=== PATIENT | male | born 1990 | race Two or more races ===

== ENCOUNTER 2017-01-10 23:59 | Inpatient (IN) | payer SELFPAY ==
[~2017-01-10] VITALS: Ht 167.6 cm; Wt 59.0 kg
[2017-01-11] VITALS (8 sets, daily range): BP systolic 107–124; BP diastolic 58–63
[2017-01-11] MEDS ORDERED: TdaP Vaccine 0.5ml Syr IM ONE (00:15)
--- NOTE | 2017-01-11 00:42 | Emergency Room Report ---
History of Present Illness General Chief Complaint: Pain Source: Patient, EMS Present Illness HPI Patient was brought in by EMS. People were closing up an AA meeting mays. The patient was still there and altered. Apparently family had dropped him off there. He claims that they had him chained by his arms and his ankles for several days to keep him from getting alcohol. He has pain in his wrists and his ankles and also headache. Alleges no vomiting. + diarrhea. No dysuria. Sparse answers about other questions. He states he was in a hospital before the 7 days - on [address] (we called [facility] and [facility] both stated he was not there.) Allergies: Coded Allergies: No Known Allergies (Unverified , 01/10/17) Patient History Past Medical History: see triage record Social History: Reports: alcohol use Social History Narrative alleges family chained him, also states with child Reviewed Nursing Documentation: PMH: Agreed, PSxH: Agreed Nursing Documentation-PMH Past Medical History: No Stated History Review of Systems All Other Systems: limited - possible confabulation Physical Exam Vital Signs Date Time Temp Pulse Resp B/P Pulse Ox O2 Delivery O2 Flow Rate FiO2 01/10/17 23:58 98.1 90 16 134/69 98 Room Air Sp02 EP Interpretation: reviewed, normal General Appearance: no apparent distress, other - dishevelled Head: normocephalic Eyes: bilateral eye PERRL, bilateral eye Scleral Injection ENT: moist mucus membranes Neck: full range of motion Respiratory: lungs clear, normal breath sounds Cardiovascular #1: regular rate, rhythm Cardiovascular #2: 2+ radial (R) Gastrointestinal: normal bowel sounds, non tender, soft Rectal: black stool, heme positive stool Genitourinary: other - ulcer on scrota Musculoskeletal: normal range of motion, pelvis stable, swelling - R hand, wrists and ankles, other - tender wrists and ankles Neurologic: motor strength/tone normal, DTRs symmetric, sensory intact, other - possible asterixis, oriented - X2 - possible confabulation Psychiatric: depressed affect, other - lethargic Skin: pallor, rash, abrasions Medical Decision Making Diagnostic Impression: Primary Impression: GI bleed Qualified Codes: K92.1 - Melena Additional Impressions: Alcohol intoxication Qualified Codes: F10.929 - Alcohol use, unspecified with intoxication, unspecified Alcoholic liver disease Thrombocytopenia Scrotal ulcer ER Course Patient presents with extremity pain with altered mentation. He has melanotic stools. Differential includes gastritis, esophageal varices, peptic ulcer disease amongst others. We need to exclude a coagulopathy. In addition is complaining about pain in his extremities. There is no deformity however x- rays need to be obtained. In addition to that he is altered and claims has not been drinking alcohol for 7 days. We need to CT his head. He'll be getting IV hydration, thiamine. In addition he'll receive Protonix. Labs are significant for critical anemia. Due to the GI bleed the patient is being admitted to [facility]. In addition to that he has elevated liver function tests. As alcohol is 433. Mild coagulopathy. CT head negative. Given vitamin K. Improved with treatment. Holding off on transfusion. Concern for possible DTs when alcohol decreases. Admit [facility], Dr. Huff. Laboratory Tests Test 01/11/17 00:25 01/11/17 00:50 White Blood Count 4.3 K/UL (4.8-10.8) L Red Blood Count 3.17 M/UL (4.70-6.10) L Hemoglobin 7.9 G/DL (14.2-18.0) L Hematocrit 25.1 % (42.0-52.0) L Mean Corpuscular Volume 79 FL (80-99) L Mean Corpuscular Hemoglobin 25.0 PG (27.0-31.0) L Mean Corpuscular Hemoglobin Concent 31.6 G/DL (32.0-36.0) L Red Cell Distribution Width 18.3 % (11.6-14.8) H Platelet Count 20 K/UL (150-450) L Mean Platelet Volume 8.3 FL (6.5-10.1) Neutrophils (%) (Auto) % (45.0-75.0) Lymphocytes (%) (Auto) % (20.0-45.0) Monocytes (%) (Auto) % (1.0-10.0) Eosinophils (%) (Auto) % (0.0-3.0) Basophils (%) (Auto) % (0.0-2.0) Prothrombin Time 12.6 SEC (9.30-11.50) H Prothrombin Time INR 1.2 (0.9-1.1) H PTT 30 SEC (23-33) Sodium Level 138 mEQ/L (135-145) Potassium Level 3.6 mEQ/L (3.4-4.9) Chloride Level 91 mEQ/L (98-107) L Carbon Dioxide Level 26 mEQ/L (20-30) Anion Gap 21 (5-15) H Blood Urea Nitrogen 8 mg/dL (7-23) Creatinine 0.5 mg/dL (0.7-1.2) L Estimate Glomerular Filtration Rate > 60 mL/min (>60) Glucose Level 105 mg/dL (74-106) Lactic Acid Level 2.00 mmol/L (0.66-2.22) Calcium Level 8.2 mg/dL (8.6-10.2) L Total Bilirubin 2.8 mg/dL (0.0-1.2) H Direct Bilirubin 1.6 mg/dL (0.1-0.3) H Aspartate Amino Transferase (AST) 145 U/L (5-40) H Alanine Aminotransferase (ALT) 36 U/L (3-41) Alkaline Phosphatase 188 U/L (40-129) H Total Creatine Kinase 110 U/L (38-174) Total Protein 7.0 g/dL (6.6-8.7) Albumin 4.0 g/dL (3.5-5.2) Globulin 3.0 g/dL Albumin/Globulin Ratio 1.3 (1.0-2.7) Salicylates Level < 1 mg/dL (10-30) L Acetaminophen Level < 10 ug/mL (10-30) L Serum Alcohol 433 mg/dL Urine Color Yellow Urine Appearance Clear Urine pH 6 (4.5-8.0) Urine Specific [place] 1.020 (1.005-1.035) Urine Protein 3+ (NEGATIVE) H Urine Glucose (UA) Negative (NEGATIVE) Urine Ketones 4+ (NEGATIVE) H Urine Occult Blood 1+ (NEGATIVE) H Urine Nitrite Negative (NEGATIVE) Urine Bilirubin 2+ (NEGATIVE) H Urine Ictotest Positive Urine Urobilinogen 12 MG/DL (0.0-1.0) H Urine Leukocyte Esterase 1+ (NEGATIVE) H Urine RBC 0-2 /HPF (0 - 0) H Urine WBC 0-2 /HPF (0 - 0) Urine Squamous Epithelial Cells Few /LPF (NONE/OCC) Urine Calcium Oxalate Crystals Few /LPF (NONE) Urine Amorphous Sediment Many /LPF (NONE) H Urine Bacteria Few /HPF (NONE) Ammonia 53 umol/L (16-60) Urine Opiates Screen Negative (NEGATIVE) Urine Barbiturates Screen Negative (NEGATIVE) Phencyclidine (PCP) Screen Negative (NEGATIVE) Urine Amphetamines Screen Negative (NEGATIVE) Urine Benzodiazepines Screen Negative (NEGATIVE) Urine Cocaine Screen Negative (NEGATIVE) Urine Marijuana (THC) Screen Negative (NEGATIVE) EKG Diagnostic Results Rate: normal Rhythm: NSR ST Segments: no acute changes Rhythm Strip Diag. Results EP Interpretation: yes Rhythm: NSR, no PVC's, no ectopy Chest X-Ray Diagnostic Results EP Interpretation: Yes Findings: no consolidation, no effusion, no pneumothorax, other - inc cor Number of Views: 1 Other X-Ray Diagnostic Results Other X-Ray Diagnostic Results #1: X-Ray Ordered: r hand EP Interpretation: Yes Findings: no fractures, no dislocation, other - STS Number of Views: 3 Other X-Ray Diagnostic Results #2: X-Ray Ordered: L hand EP Interpretation: Yes Findings: no fractures, no dislocation, no soft tissue swelling Number of Views: 3 Other X-Ray Diagnostic Results #3: X-Ray Ordered: R ankle EP Interpretation: Yes Findings: no fractures, no dislocation, no soft tissue swelling Number of Views: 3 Other X-Ray Diagnostic Results #4: X-Ray Ordered: L ankld EP Interpretation: Yes Findings: no fractures, no dislocation, no soft tissue swelling Number of Views: 3 CT/MRI/US Diagnostic Results CT/MRI/US Diagnostic Results : Imaging Test Ordered: head Impression no bleed Last Vital Signs Date Time Temp Pulse Resp B/P Pulse Ox O2 Delivery O2 Flow Rate FiO2 01/11/17 03:27 98.1 87 17 107/62 95 Room Air Status: improved Disposition: ADMITTED INPATIENT Condition: Serious Amandeep Rosenberg M.D. January 11, 2017 00:42
[2017-01-11 00:51] LABS: MEAN CORPUSCULAR HGB CONC 31.6 G/DL (32.0-36.0); MEAN CORPUSCULAR VOLUME 79 FL (80-99); MEAN PLATELET VOLUME 8.3 FL (6.5-10.1); PLATELET COUNT 20 K/UL (150-450); RED BLOOD COUNT 3.17 M/UL (4.70-6.10); RED CELL DISTRIBUTION WIDTH 18.3 % (11.6-14.8); WHITE BLOOD COUNT 4.3 K/UL (4.8-10.8)
[2017-01-11 01:05] LABS: ACETAMINOPHEN < 10 ug/mL (10-30); ALANINE AMINOTRANSFERASE 36 U/L (3-41); ALBUMIN/GLOBULIN RATIO 1.3 (1.0-2.7); ALCOHOL 433 mg/dL; ANION GAP 21 (5-15); ASPARTATE AMINO TRANSFERASE 145 U/L (5-40); CALCIUM 8.2 mg/dL (8.6-10.2); CARBON DIOXIDE 26 mEQ/L (20-30); CHLORIDE 91 mEQ/L (98-107); CREATININE 0.5 mg/dL (0.7-1.2); GLOMERULAR FILTRATION RATE > 60 mL/min (>60); HEMOLYSIS 0; POTASSIUM 3.6 mEQ/L (3.4-4.9); SODIUM 138 mEQ/L (135-145)
[2017-01-11 01:09] LABS: REFLEX LACTIC ACID YES OR NO YES
[2017-01-11] MEDS ORDERED: Thiamine HCl 100 MG in D5W 55 ML IVPB SCH (01:15)
[2017-01-11 01:18] LABS: BILIRUBIN,DIRECT 1.6 mg/dL (0.1-0.3)
[2017-01-11] MEDS ORDERED: Thiamine HCl 100mg/ml Inj ONE (01:40)
[2017-01-11] MEDS ORDERED: Phytonadione 10 mg/mL 1ml amp SUBQ ONE (01:45)
[2017-01-11] MEDS ORDERED: Pantoprazole Inj IVP ONE (01:45)
[2017-01-11 01:58] LABS: APPEARANCE,URINE CLEAR; KETONES,URINE 4+ (NEGATIVE); LEUKOCYTE ESTERASE ,URINE 1+ (NEGATIVE); NITRITE,URINE NEGATIVE (NEGATIVE); PH,URINE 6 (4.5-8.0); PROTEIN,URINE 3+ (NEGATIVE); RBC,URINE 0-2 /HPF (0 - 0); UROBILINOGEN,URINE 12 MG/DL (0.0-1.0)
[2017-01-11 01:59] LABS: AMORPHOUS SEDIMENT,UR MANY /LPF; BACTERIA,URINE FEW /HPF; CALCIUM OXALATE CRYSTALS,UR FEW /LPF; SQUAMOUS EPITHELIAL CELL,UR FEW /LPF (NONE/OCC); WBC,URINE 0-2 /HPF (0 - 0)
[2017-01-11 02:00] LABS: ICTOTEST POSITIVE
[2017-01-11 02:32] LABS: INR 1.2 (0.9-1.1); PROTHROMBIN TIME 12.6 SEC (9.30-11.50)
[2017-01-11] MEDS ORDERED: LORazepam Inj 2mg/ml 1ml IV PRN ×2 (07:15→16:00)
[2017-01-11] MEDS ORDERED: Morphine Sulfate 2mg/ml Inj IVP PRN ×2 (07:15→16:00)
[2017-01-11] MEDS ORDERED: D5 1/2NS 1,000 ML IV SCH (07:30)
--- NOTE | 2017-01-11 09:12 | Diagnostic Imaging Report ---
Indication: Altered level of consciousness Technique: Contiguous 5 mm thick transaxial imaging of the head obtained in a Siemens Sensation [address] scanner. Soft tissue and bone windows generated. Total Dose length Product (DLP): [address] Dose Index Volume (CTDIvol): 70.38 mGy Comparison: none Findings: The size and configuration of the cortical sulci, basal cisterns, and ventricles are within normal limits for age. There is no mass effect, midline shift, or edema identified. There is no evidence of acute hemorrhage or abnormal intra-axial or extra-axial fluid collections. The bones and soft tissues are unremarkable. Impression: No mass effect, edema or acute bleed. The CT scanner at [facility] is accredited by the [employer] and the scans are performed using dose optimization techniques as appropriate to a performed exam including Automatic Exposure control.
--- NOTE | 2017-01-11 09:46 | General Progress Note ---
Assessment/Plan Assessment/Plan Assessment - UGIB - Anemia - Alcohol abuse - ETOH hepatitis - Thrombocytopenia, presumed due to EtOH - Doubt cirrhosis but will Rx Sandostatin until EGD Recommendation - NPO - IVF - PPI - Thiamine - BDZ - Sandostatin - RBC and Platelet Tx - EGD Thank you Miguel Angel Lund MD Subjective Allergies: Coded Allergies: No Known Allergies (Unverified , 01/10/17) Objective Last 24 Hour Vital Signs Date Time Temp Pulse Resp B/P Pulse Ox O2 Delivery O2 Flow Rate FiO2 01/11/17 08:00 78 01/11/17 08:00 98.2 106 21 124/63 96 Room Air 01/11/17 04:21 87 01/11/17 04:10 98.2 78 18 113/63 95 Room Air 01/11/17 03:50 98.1 87 17 107/62 95 Room Air 01/11/17 03:27 98.1 87 17 107/62 95 Room Air 01/11/17 02:27 98.1 93 17 112/61 95 Room Air 01/10/17 23:58 98.1 90 16 134/69 98 Room Air Intake and Output 01/10/17 01/11/17 19:00 07:00 Intake Total 1900 ml Balance 1900 ml Intake Oral 0 ml IV Total 1900 ml # Bowel Movements 2 Laboratory Tests 01/11/17 00:25: White Blood Count 4.3L, Red Blood Count 3.17L, Hemoglobin 7.9L, Hematocrit 25.1L , Mean Corpuscular Volume 79L, Mean Corpuscular Hemoglobin 25.0L, Mean Corpuscular Hemoglobin Concent 31.6L, Red Cell Distribution Width 18.3H, Platelet Count 20L, Mean Platelet Volume 8.3, Neutrophils (%) (Auto) , Lymphocytes (%) (Auto) , Monocytes (%) (Auto) , Eosinophils (%) (Auto) , Basophils (%) (Auto) , Prothrombin Time 12.6H, Prothromb Time International Ratio 1.2H, Activated Partial Thromboplast Time 30, Sodium Level 138, Potassium Level 3.6, Chloride Level 91L, Carbon Dioxide Level 26, Anion Gap 21H, Blood Urea Nitrogen 8, Creatinine 0.5L, Estimat Glomerular Filtration Rate > 60, Glucose Level 105, Lactic Acid Level 2.00, Calcium Level 8.2L, Total Bilirubin 2.8H, Direct Bilirubin 1.6H, Aspartate Amino Transf (AST/SGOT) 145H, Alanine Aminotransferase (ALT/SGPT) 36, Alkaline Phosphatase 188H, Total Creatine Kinase 110, Total Protein 7.0, Albumin 4.0, Globulin 3.0, Albumin/Globulin Ratio 1.3, Salicylates Level < 1L, Acetaminophen Level < 10L, Serum Alcohol 433 01/11/17 00:50: Urine Color Yellow, Urine Appearance Clear, Urine pH 6, Urine Specific [place] 1.020, Urine Protein 3+H, Urine Glucose (UA) Negative, Urine Ketones 4+H, Urine Occult Blood 1+H, Urine Nitrite Negative, Urine Bilirubin 2+H, Urine Ictotest Positive, Urine Urobilinogen 12H, Urine Leukocyte Esterase 1+H, Urine RBC 0-2H, Urine WBC 0-2, Urine Squamous Epithelial Cells Few, Urine Calcium Oxalate Crystals Few, Urine Amorphous Sediment ManyH, Urine Bacteria Few, Ammonia 53, Urine Opiates Screen Negative, Urine Barbiturates Screen Negative, Phencyclidine (PCP) Screen Negative, Urine Amphetamines Screen Negative, Urine Benzodiazepines Screen Negative, Urine Cocaine Screen Negative, Urine Marijuana (THC) Screen Negative Height (Feet): 5 Height (Inches): 6.00 Weight (Pounds): 130 MIGUEL ANGEL LUND January 11, 2017 09:46
[2017-01-11] MEDS ORDERED: [UNRECOGNIZED DRUG - OTHER] IV SCH (10:00)
[2017-01-11] MEDS ORDERED: MAGNESIUM SULFATE IV SCH (10:00)
[2017-01-11] MEDS ORDERED: FOLIC ACID IV SCH (10:00)
[2017-01-11] MEDS ORDERED: Thiamine 100mg in D5W 55ml IVPB SCH (10:00)
[2017-01-11] MEDS ORDERED: MULTIVITAMIN IV SCH (10:00)
--- NOTE | 2017-01-11 10:22 | Diagnostic Imaging Report ---
Indication: Chest Pain. Trauma Comparison: None A single view chest radiograph was obtained. Findings: Cardiac silhouette is enlarged. Pulmonary vascularity is prominent. No infiltrate identified. Lung volumes are low. Bones are unremarkable. Impression: Cardiomegaly. Pulmonary vascularity without overt CHF. Suggest further workup as the heart size is an unexpected finding given the patient's age.
--- NOTE | 2017-01-11 10:23 | Diagnostic Imaging Report ---
Indication: Pain Comparison: None Findings: 3 views of the right ankle obtained. No acute fracture, malalignment, periostitis, or osteochondral defects are identified. Soft tissues are unremarkable. Impression: Negative examination
--- NOTE | 2017-01-11 10:23 | Diagnostic Imaging Report ---
Indication: Pain Findings: 3 views of the left wrist were obtained. No acute fractures, malalignment, erosions or periostitis are identified. Bone mineralization is within normal limits. Soft tissues are unremarkable. Impression: Negative examination of the left wrist.
--- NOTE | 2017-01-11 10:23 | Diagnostic Imaging Report ---
Indication: Pain Comparison: None Findings: 3 views of the left ankle obtained. No acute fracture, malalignment, periostitis, or osteochondral defects are identified. Soft tissues are unremarkable. Impression: No acute findings
--- NOTE | 2017-01-11 10:23 | Diagnostic Imaging Report ---
Indication: Pain Findings: 3 views of the right wrist were obtained. No acute fractures, malalignment, erosions or periostitis are identified. Bone mineralization is within normal limits. Soft tissues are unremarkable. Impression: Negative examination of the right wrist.
[2017-01-11] MEDS ORDERED: [UNRECOGNIZED DRUG - OTHER] IV SCH ×4 (10:30)
[2017-01-11] MEDS: Octreotide Acetate 500 MCG in Sodium Chloride 499 ML IV SCH ×2 (10:45→20:29)
--- NOTE | 2017-01-11 13:35 | Consultation ---
History of Present Illness General Date patient seen: January 11, 2017 Chief Complaint: Pain Reason for Consultation: inpatient management Present Illness HPI 26 year old male was brought in by EMS for being altered. Apparently family had dropped him off at a AA meeting. He claims that they had him chained by his arms and his ankles for several days to keep him from getting alcohol. He has pain in his wrists and his ankles and also headache. He was found to be anemic and admitted to [facility] for further treatment. Allergies: Coded Allergies: No Known Allergies (Unverified , 01/10/17) Patient History Healthcare decision maker Resuscitation status Full Code Advanced Directive on File No Review of Systems All Other Systems: negative except mentioned in HPI Physical Exam General Appearance: WD/WN Lines, tubes and drains: peripheral, PICC Neck: non-tender, normal alignment Respiratory/Chest: chest wall non-tender, lungs clear Cardiovascular/Chest: normal peripheral pulses, normal rate Abdomen: normal bowel sounds Genitourinary/Rectal: normal genital exam Last 24 Hour Vital Signs Date Time Temp Pulse Resp B/P Pulse Ox O2 Delivery O2 Flow Rate FiO2 01/11/17 12:00 85 01/11/17 12:00 99.4 92 20 107/60 96 Room Air 01/11/17 08:00 78 01/11/17 08:00 98.2 106 21 124/63 96 Room Air 01/11/17 04:21 87 01/11/17 04:10 98.2 78 18 113/63 95 Room Air 01/11/17 03:50 98.1 87 17 107/62 95 Room Air 01/11/17 03:27 98.1 87 17 107/62 95 Room Air 01/11/17 02:27 98.1 93 17 112/61 95 Room Air 01/10/17 23:58 98.1 90 16 134/69 98 Room Air Intake and Output 01/10/17 01/11/17 19:00 07:00 Intake Total 1900 ml Balance 1900 ml Intake Oral 0 ml IV Total 1900 ml # Bowel Movements 2 Laboratory Tests Test 01/11/17 00:25 01/11/17 00:50 White Blood Count 4.3 K/UL (4.8-10.8) L Red Blood Count 3.17 M/UL (4.70-6.10) L Hemoglobin 7.9 G/DL (14.2-18.0) L Hematocrit 25.1 % (42.0-52.0) L Mean Corpuscular Volume 79 FL (80-99) L Mean Corpuscular Hemoglobin 25.0 PG (27.0-31.0) L Mean Corpuscular Hemoglobin Concent 31.6 G/DL (32.0-36.0) L Red Cell Distribution Width 18.3 % (11.6-14.8) H Platelet Count 20 K/UL (150-450) L Mean Platelet Volume 8.3 FL (6.5-10.1) Neutrophils (%) (Auto) % (45.0-75.0) Lymphocytes (%) (Auto) % (20.0-45.0) Monocytes (%) (Auto) % (1.0-10.0) Eosinophils (%) (Auto) % (0.0-3.0) Basophils (%) (Auto) % (0.0-2.0) Prothrombin Time 12.6 SEC (9.30-11.50) H Prothromb Time International Ratio 1.2 (0.9-1.1) H Activated Partial Thromboplast Time 30 SEC (23-33) Sodium Level 138 mEQ/L (135-145) Potassium Level 3.6 mEQ/L (3.4-4.9) Chloride Level 91 mEQ/L (98-107) L Carbon Dioxide Level 26 mEQ/L (20-30) Anion Gap 21 (5-15) H Blood Urea Nitrogen 8 mg/dL (7-23) Creatinine 0.5 mg/dL (0.7-1.2) L Estimat Glomerular Filtration Rate > 60 mL/min (>60) Glucose Level 105 mg/dL (74-106) Lactic Acid Level 2.00 mmol/L (0.66-2.22) Calcium Level 8.2 mg/dL (8.6-10.2) L Total Bilirubin 2.8 mg/dL (0.0-1.2) H Direct Bilirubin 1.6 mg/dL (0.1-0.3) H Aspartate Amino Transf (AST/SGOT) 145 U/L (5-40) H Alanine Aminotransferase (ALT/SGPT) 36 U/L (3-41) Alkaline Phosphatase 188 U/L (40-129) H Total Creatine Kinase 110 U/L (38-174) Total Protein 7.0 g/dL (6.6-8.7) Albumin 4.0 g/dL (3.5-5.2) Globulin 3.0 g/dL Albumin/Globulin Ratio 1.3 (1.0-2.7) Salicylates Level < 1 mg/dL (10-30) L Acetaminophen Level < 10 ug/mL (10-30) L Serum Alcohol 433 mg/dL Urine Color Yellow Urine Appearance Clear Urine pH 6 (4.5-8.0) Urine Specific [place] 1.020 (1.005-1.035) Urine Protein 3+ (NEGATIVE) H Urine Glucose (UA) Negative (NEGATIVE) Urine Ketones 4+ (NEGATIVE) H Urine Occult Blood 1+ (NEGATIVE) H Urine Nitrite Negative (NEGATIVE) Urine Bilirubin 2+ (NEGATIVE) H Urine Ictotest Positive Urine Urobilinogen 12 MG/DL (0.0-1.0) H Urine Leukocyte Esterase 1+ (NEGATIVE) H Urine RBC 0-2 /HPF (0 - 0) H Urine WBC 0-2 /HPF (0 - 0) Urine Squamous Epithelial Cells Few /LPF (NONE/OCC) Urine Calcium Oxalate Crystals Few /LPF (NONE) Urine Amorphous Sediment Many /LPF (NONE) H Urine Bacteria Few /HPF (NONE) Ammonia 53 umol/L (16-60) Urine Opiates Screen Negative (NEGATIVE) Urine Barbiturates Screen Negative (NEGATIVE) Phencyclidine (PCP) Screen Negative (NEGATIVE) Urine Amphetamines Screen Negative (NEGATIVE) Urine Benzodiazepines Screen Negative (NEGATIVE) Urine Cocaine Screen Negative (NEGATIVE) Urine Marijuana (THC) Screen Negative (NEGATIVE) Height (Feet): 5 Height (Inches): 6.00 Weight (Pounds): 130 Medications Current Medications Medications (Trade) Dose Ordered Sig/Yanely Route PRN Reason Start Time Stop Time Status Last Admin Dose Admin Acetaminophen (Tylenol) 650 mg Q4H PRN ORAL Mild Pain/Temp > 100.5 01/11/17 07:15 02/10/17 07:14 01/11/17 10:44 Dextrose (Dextrose 50%) STAT PRN IV Hypoglycemia 01/11/17 07:15 02/10/17 07:14 Dextrose/Sodium Chloride 1,000 ml @ 125 mls/hr Q8H IV 01/12/17 09:45 02/11/17 09:44 Lorazepam (Ativan 2mg/ml 1ml) 1 mg Q4H PRN IV For Anxiety 01/11/17 07:15 01/18/17 07:14 Morphine Sulfate (Morphine Sulfate) 2 mg Q4H PRN IVP FOR SEVERE PAIN 01/11/17 07:15 01/18/17 07:14 01/11/17 10:34 Multivitamins/ Magnesium Sulfate/ Folic Acid/ Dextrose/ Electrolytes (M.v.i.-12/ Magnesium Sulfate/ Folvite/D5 0.45%NS W/KCl 20mEq) 1,014.2 ml @ 125 mls/ hr Q24HRS IV 01/11/17 10:30 02/10/17 10:29 01/11/17 10:51 Octreotide Acetate 500 mcg/ Sodium Chloride 500 ml @ 50 mls/hr Q10H IV 01/11/17 10:30 02/10/17 10:29 01/11/17 10:45 Pantoprazole 40 mg 40 mg EVERY 12 HOURS ORAL 01/11/17 09:00 02/10/17 08:59 01/11/17 09:32 Thiamine HCl 100 mg/Dextrose 56 ml @ 112 mls/hr Q24H IVPB 01/11/17 10:00 02/10/17 09:59 01/11/17 10:34 Assessment/Plan Problem List: (1) GI bleed ICD Codes: K92.2 - Gastrointestinal hemorrhage, unspecified SNOMED: 82778118 (2) Alcoholic liver disease ICD Codes: K70.9 - Alcoholic liver disease, unspecified SNOMED: 20223587 (3) Thrombocytopenia ICD Codes: D69.6 - Thrombocytopenia, unspecified SNOMED: 063982383 (4) Alcohol intoxication ICD Codes: F10.929 - Alcohol use, unspecified with intoxication, unspecified SNOMED: 80126379 Assessment/Plan NPO IV fluids prbc prn thiamine, folic acid GI evaluaiton librium prn KENNETH SAN January 11, 2017 13:35
[2017-01-11] MEDS ORDERED: chlordiazePOXIDE 25mg Cap ORAL PRN ×2 (13:45→16:00)
[2017-01-11] MEDS ORDERED: Octreotide Acetate 500 MCG in Sodium Chloride 499 ML IV SCH (15:30)
[2017-01-11] MEDS: D5 1/2NS 1,000 ML IV SCH (16:00)
[2017-01-11 17:05] LABS: MEAN CORPUSCULAR HEMOGLOBIN 27.2 PG (27.0-31.0); MEAN CORPUSCULAR HGB CONC 33.2 G/DL (32.0-36.0); MEAN CORPUSCULAR VOLUME 82 FL (80-99); MEAN PLATELET VOLUME 6.7 FL (6.5-10.1); PLATELET COUNT 29 K/UL (150-450); RED BLOOD COUNT 2.95 M/UL (4.70-6.10); RED CELL DISTRIBUTION WIDTH 17.8 % (11.6-14.8); WHITE BLOOD COUNT 3.9 K/UL (4.8-10.8)
[2017-01-11 18:18] LABS: ANISOCYTOSIS 2+; EOSINOPHILS % (MANUAL) 3 % (0-3); LYMPHOCYTES % (MANUAL) 18 % (20-45); NEUTROPHILS % (MANUAL) 76 % (45-75); PLATELET MORPHOLOGY NORMAL; TOTAL CELLS COUNTED 100
[2017-01-11 18:19] LABS: BAND NEUTROPHILS % (MANUAL) 0 % (0-8); BASOPHILS % (MANUAL) 0 % (0-2); HYPOCHROMASIA 2+; PLATELET ESTIMATE DECREASED
--- NOTE | 2017-01-11 20:01 | History and Physical Report ---
DATE OF ADMISSION: 01/11/2017 TIME: 8 a.m. CONSULTANTS: 1. Natasha Orr M.D. 2. Tyler Abraham M.D. CHIEF COMPLAINT: Upper gastrointestinal bleed and alcoholic liver disease. HISTORY OF PRESENT ILLNESS: This is a 26-year-old male, comes in with vomiting of blood, diagnosed with the above and admitted to [facility] for further care. Currently, calm in bed, no complaints. Slightly weak. REVIEW OF SYSTEMS: No chest pain. No shortness of breath. Slight nausea and vomiting. No diarrhea. PAST MEDICAL HISTORY: Alcohol intoxication, liver disease, thrombocytopenia. PAST SURGICAL HISTORY: None. MEDICATIONS: Protonix, Ativan, morphine, Tylenol, thiamine, and vitamin K. ALLERGIES: Denies. SOCIAL HISTORY: No smoking. Positive alcohol. No intravenous drug abuse. FAMILY HISTORY: Noncontributory. PHYSICAL EXAMINATION: GENERAL: Calm, in bed, oriented x2, in no acute distress. VITAL SIGNS: Temperature is 98 degrees, pulse 78, respirations 18, and blood pressure 113/63. CARDIOVASCULAR: No murmur. LUNGS: Distant and clear. ABDOMEN: Bowel sound positive. Soft, nontender and nondistended. EXTREMITIES: No cyanosis, clubbing, or edema. NEUROLOGIC: The patient moves all extremities, slight weak. LABORATORY AND DIAGNOSTIC DATA: White count 4.3, hemoglobin and hematocrit 10.0 and 25 and platelets . Chloride 91, BUN and creatinine 8/0.5. INR is 1.2. Urinalysis 1+ occult blood, 2+ bilirubin, and 1+ leukocytes. Urine toxicology is negative. ASSESSMENT: 1. Upper gastrointestinal bleed. 2. Anemia. 3. Urinary tract infection. 4. Alcoholic liver disease. 5. Thrombocytopenia. PLAN: Continue premedications. NPO. IV fluids. Transfuse p.r.n. OT/PT. Dietary evaluation. CBC and BMP in the morning. Dr. Orr, Dr. Abraham, Dr. Auguste, and Dr. Costa to consult. Luis A Huff D.O. DR: [facility] JOB#: [id number] CC:
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
[2017-01-11 23:21] LABS: PATH BLOOD SMEAR/OMC SENT TO PATHOLOGIST
[2017-01-12] VITALS (10 sets, daily range): BP systolic 112–128; BP diastolic 65–77
[2017-01-12] MEDS: D5 1/2NS 1,000 ML IV SCH ×4 (00:36→23:56)
[2017-01-12] MEDS: Octreotide Acetate 500 MCG in Sodium Chloride 499 ML IV SCH (06:05)
[2017-01-12 06:55] LABS: INR 1.2 (0.9-1.1); PROTHROMBIN TIME 12.7 SEC (9.30-11.50)
[2017-01-12 07:04] LABS: MEAN CORPUSCULAR HEMOGLOBIN 25.5 PG (27.0-31.0); MEAN CORPUSCULAR HGB CONC 31.4 G/DL (32.0-36.0); MEAN CORPUSCULAR VOLUME 81 FL (80-99); MEAN PLATELET VOLUME 9.1 FL (6.5-10.1); PLATELET COUNT 29 K/UL (150-450); RED BLOOD COUNT 3.23 M/UL (4.70-6.10); RED CELL DISTRIBUTION WIDTH 17.7 % (11.6-14.8); WHITE BLOOD COUNT 3.4 K/UL (4.8-10.8)
[2017-01-12 07:25] LABS: FERRITIN 44 ng/mL (10-230)
[2017-01-12 07:27] LABS: MAGNESIUM 1.4 mg/dL (1.7-2.5); PHOSPHORUS 2.9 mg/dL (2.5-4.8)
[2017-01-12 07:34] LABS: ALANINE AMINOTRANSFERASE 32 U/L (3-41); ALBUMIN/GLOBULIN RATIO 1.3 (1.0-2.7); ANION GAP 24 (5-15); ASPARTATE AMINO TRANSFERASE 125 U/L (5-40); CALCIUM 8.3 mg/dL (8.6-10.2); CARBON DIOXIDE 23 mEQ/L (20-30); CHLORIDE 88 mEQ/L (98-107); CREATININE 0.7 mg/dL (0.7-1.2); GLOMERULAR FILTRATION RATE > 60 mL/min (>60); LACTATE DEHYDROGENASE 245 U/L (135-230); POTASSIUM 3.3 mEQ/L (3.4-4.9); SODIUM 135 mEQ/L (135-145); TOTAL PROTEIN 6.6 g/dL (6.6-8.7)
[2017-01-12 07:35] LABS: HEMOLYSIS 1; IRON 91 ug/dL (59-158); TOTAL IRON BINDING CAPACITY 307 ug/dL (250-400)
[2017-01-12 07:44] LABS: BILIRUBIN,DIRECT 2.7 mg/dL (0.1-0.3)
--- NOTE | 2017-01-12 07:50 | General Progress Note ---
Assessment/Plan Problem List: (1) Alcohol intoxication ICD Codes: F10.929 - Alcohol use, unspecified with intoxication, unspecified SNOMED: 03082986 Qualifiers: Qualified Codes: F10.929 - Alcohol use, unspecified with intoxication, unspecified (2) GI bleed ICD Codes: K92.2 - Gastrointestinal hemorrhage, unspecified SNOMED: 87335340 Qualifiers: Qualified Codes: K92.1 - Melena (3) Alcoholic liver disease ICD Codes: K70.9 - Alcoholic liver disease, unspecified SNOMED: 60591943 (4) Thrombocytopenia ICD Codes: D69.6 - Thrombocytopenia, unspecified SNOMED: 578446400 (5) Scrotal ulcer ICD Codes: N50.89 - Other specified disorders of the male genital organs SNOMED: 7057485 Status: unchanged Assessment/Plan ot pt diet ivf gi f/u cbc bmp am dc plan Subjective Constitutional: Reports: weakness Allergies: Coded Allergies: No Known Allergies (Unverified , 01/10/17) All Systems: reviewed and negative except above Subjective sleepy Objective Last 24 Hour Vital Signs Date Time Temp Pulse Resp B/P Pulse Ox O2 Delivery O2 Flow Rate FiO2 01/12/17 04:00 99.3 97 20 124/72 95 Room Air 01/12/17 01:06 99.1 01/12/17 00:00 99.3 105 20 128/68 95 Room Air 01/11/17 20:00 99.1 97 20 116/60 95 Room Air 01/11/17 16:34 98.2 91 17 123/61 97 Room Air 01/11/17 15:50 98.3 87 21 111/58 96 Room Air 01/11/17 12:00 85 01/11/17 12:00 99.4 92 20 107/60 96 Room Air 01/11/17 08:00 78 01/11/17 08:00 98.2 106 21 124/63 96 Room Air Intake and Output 01/11/17 01/12/17 19:00 07:00 Intake Total 450 ml 1125 ml Balance 450 ml 1125 ml IV Total 450 ml 1125 ml # Voids 1 Laboratory Tests 01/11/17 16:45: White Blood Count 3.9L, Red Blood Count 2.95L, Hemoglobin 8.0L, Hematocrit 24.2L , Mean Corpuscular Volume 82, Mean Corpuscular Hemoglobin 27.2, Mean Corpuscular Hemoglobin Concent 33.2, Red Cell Distribution Width 17.8H, Platelet Count 29L, Mean Platelet Volume 6.7, Neutrophils (%) (Auto) , Lymphocytes (%) (Auto) , Monocytes (%) (Auto) , Eosinophils (%) (Auto) , Basophils (%) (Auto) , Differential Total Cells Counted 100, Neutrophils % ( Manual) 76H, Lymphocytes % (Manual) 18L, Monocytes % (Manual) 3, Eosinophils % ( Manual) 3, Basophils % (Manual) 0, Band Neutrophils 0, Platelet Estimate DecreasedL, Platelet Morphology Normal, Hypochromasia 2+, Anisocytosis 2+ 01/12/17 05:10: White Blood Count 3.4L, Red Blood Count 3.23L, Hemoglobin 8.2L, Hematocrit 26.3L , Mean Corpuscular Volume 81, Mean Corpuscular Hemoglobin 25.5L, Mean Corpuscular Hemoglobin Concent 31.4L, Red Cell Distribution Width 17.7H, Platelet Count 29L, Mean Platelet Volume 9.1, Neutrophils (%) (Auto) , Lymphocytes (%) (Auto) , Monocytes (%) (Auto) , Eosinophils (%) (Auto) , Basophils (%) (Auto) , Neutrophils % (Manual) [Pending], Lymphocytes % (Manual) [Pending], Platelet Estimate [Pending], Platelet Morphology [Pending], Haptoglobin 69, Prothrombin Time 12.7H, Prothromb Time International Ratio 1.2H , Activated Partial Thromboplast Time 30, Fibrinogen [Pending], Sodium Level 135 , Potassium Level 3.3L, Chloride Level 88L, Carbon Dioxide Level 23, Anion Gap 24H, Blood Urea Nitrogen 4L, Creatinine 0.7, Estimat Glomerular Filtration Rate > 60, Glucose Level 215#H, Calcium Level 8.3L, Phosphorus Level 2.9, Magnesium Level 1.4L, Iron Level 91, Total Iron Binding Capacity 307, Percent Iron Saturation 30, Unsaturated Iron Binding 216, Ferritin 44, Total Bilirubin 5.0H, Direct Bilirubin 2.7H, Aspartate Amino Transf (AST/SGOT) 125H, Alanine Aminotransferase (ALT/SGPT) 32, Alkaline Phosphatase 174H, Lactate Dehydrogenase 245H, Total Protein 6.6, Albumin 3.8, Globulin 2.8, Albumin/ Globulin Ratio 1.3, Vitamin B12 Level 1060H, Folate [Pending], Thyroid Stimulating Hormone (TSH) 0.300, Hepatitis A IgM Antibody [Pending], Hepatitis B Surface Antigen [Pending], Hepatitis B Core IgM Antibody [Pending], Hepatitis C Antibody [Pending], HIV (1&2) Antibody Rapid Negative Height (Feet): 5 Height (Inches): 6.00 Weight (Pounds): 130 General Appearance: lethargic EENT: normal ENT inspection Neck: normal alignment Cardiovascular: normal peripheral pulses, normal rate, regular rhythm Respiratory/Chest: chest wall non-tender, lungs clear, normal breath sounds Abdomen: normal bowel sounds, non tender, soft Extremities: normal inspection Edema: no edema noted Arm (L), no edema noted Arm (R), no edema noted Leg (L), no edema noted Leg (R), no edema noted Pedal (L), no edema noted Pedal (R), no edema noted Generalized Neurologic: motor weakness Skin: normal pigmentation, warm/dry SHELLIE BOSS January 12, 2017 07:49
[2017-01-12 08:37] LABS: ANISOCYTOSIS 1+; BAND NEUTROPHILS % (MANUAL) 0 % (0-8); BASOPHILS % (MANUAL) 0 % (0-2); EOSINOPHILS % (MANUAL) 0 % (0-3); HYPOCHROMASIA 1+; LYMPHOCYTES % (MANUAL) 12 % (20-45); NEUTROPHILS % (MANUAL) 83 % (45-75); PLATELET ESTIMATE DECREASED; PLATELET MORPHOLOGY NORMAL; TOTAL CELLS COUNTED 100
[2017-01-12] MEDS ORDERED: LR 1000ml ONE (09:00)
[2017-01-12] MEDS ORDERED: Propofol 10mg/ml 20ml IV ONE (09:00)
[2017-01-12] MEDS ORDERED: Lidocaine 1% MPF 10mg/ml 5ml ONE (09:00)
--- NOTE | 2017-01-12 09:26 | Pre-Procedure Note/Attestation ---
Pre-Procedure Note/Attestation Complete Prior to Procedure Planned Procedure: not applicable Procedure Narrative: egd Indications for Procedure Pre-Operative Diagnosis: gib Attestation I attest that I discussed the nature of the procedure; its benefits; risks and complications; and alternatives (and the risks and benefits of such alternatives ), prior to the procedure, with the patient (or the patient's legal sales representative graphic art). I attest that, if there was a reasonable possibility of needing a blood transfusion, the patient (or the patient's legal sales representative graphic art) was given the [facility] standardized written summary, pursuant to the Girma Francis Blood Safety Act ([place] Health and Safety Code # 1645, as amended). I attest that I re-evaluated the patient just prior to the surgery and that there has been no change in the patient's H&P, except as documented below: MARK FRANZ January 12, 2017 09:26
--- NOTE | 2017-01-12 09:34 | Endoscopy Procedure Note ---
Endoscopy Procedure Note Indication for Procedure: UGIB Procedures Performed: EGD Operative Findings/Diagnosis: proximal non erosive gastritis, No Varicies, no ulcer Specimen: none Pt Tolerated Procedure Well: Yes Estimated Blood Loss: none Anesthesiologist: see report Anesthesia: MAC Medication Given: see anesthesia record Implant(s) used?: No 50 yrs or older w/o bx or poly: Not Applicable 10yrs. F/U not recommended: Not Applicable If not recommended, why?: MARK FRANZ January 12, 2017 09:34
--- NOTE | 2017-01-12 09:36 | Brief Operative Note ---
Immediate Post Operative Note Operative Note Chief Complaint: UGIB Pre-op Diagnosis: gib Procedure: EGD Post-op Diagnosis: proximal non erosive gastritis, No Varicies, no ulcer Surgeon: annabella Anesthesiologist: see report Anesthesia: moderate sedation Specimen: none Complications: none Condition: stable Estimated Blood Loss: none Drains: none Implant(s) used?: No MARK FRANZ January 12, 2017 09:36
[2017-01-12] MEDS ORDERED: D5 1/2NS 1,000 ML IV SCH (09:45)
--- NOTE | 2017-01-12 09:45 | Anethesia Preoperative Eval ---
Anesthesia Pre-op PMH/ROS General Date of Evaluation: January 12, 2017 Anesthesiologist: Lorenzo ASA Score: ASA 3 - E Mallampati Score Class I : Soft palate, uvula, fauces, pillars visible Class II: Soft palate, uvula, fauces visible Class III: Soft palate, base of uvula visible Class IV: Only hard plate visible Mallampati Classification: Class II Surgeon: Kevon Diagnosis: GI bleed Surgical Procedure: EGD Anesthesia History: none Social History: alcohol use - alcohol abuse Family History: no anesthesia problems Allergies: Coded Allergies: No Known Allergies (Unverified , 01/10/17) Medications: see eMAR Past Medical History Cardiovascular: Denies: CAD, HTN, AR, arrhythmia, other, valve dz Pulmonary: Denies: COPD, HIRAM, asthma, other Gastrointestinal/Genitourinary: Reports: GERD, Denies: CRI, ESRD, other Neurologic/Psychiatric: Denies: CVA, TIA, dementia, depression/anxiety, other Endocrine: Denies: DM, hypothyroidism, other, steroids HEENT: Denies: EMMONAK (L), EMMONAK (R), cataract (L), cataract (R), glaucoma, other Hematology/Immune: Reports: anemia - acute on chronic, Denies: DVT, bleeding disorder, other Musculoskeletal/Integumentary: Denies: DDD, DJD, OA, RA, edema, other PSxH Narrative: Denies Anesthesia Pre-op Phys. Exam Physician Exam Last Vital Signs Date Time Temp Pulse Resp B/P Pulse Ox O2 Delivery O2 Flow Rate FiO2 01/12/17 08:00 98.2 88 18 123/71 96 Room Air Constitutional: NAD Cardiovascular: RRR Respiratory: CTA Airway Exam Mallampati Score: Class II MO: full ROM: full Teeth: intact Anesthesia Pre-op A/P Labs Hematology Test 01/11/17 16:45 01/12/17 05:10 White Blood Count 3.9 K/UL (4.8-10.8) L 3.4 K/UL (4.8-10.8) L Red Blood Count 2.95 M/UL (4.70-6.10) L 3.23 M/UL (4.70-6.10) L Hemoglobin 8.0 G/DL (14.2-18.0) L 8.2 G/DL (14.2-18.0) L Hematocrit 24.2 % (42.0-52.0) L 26.3 % (42.0-52.0) L Mean Corpuscular Volume 82 FL (80-99) 81 FL (80-99) Mean Corpuscular Hemoglobin 27.2 PG (27.0-31.0) 25.5 PG (27.0-31.0) L Mean Corpuscular Hemoglobin Concent 33.2 G/DL (32.0-36.0) 31.4 G/DL (32.0-36.0) L Red Cell Distribution Width 17.8 % (11.6-14.8) H 17.7 % (11.6-14.8) H Platelet Count 29 K/UL (150-450) L 29 K/UL (150-450) L Mean Platelet Volume 6.7 FL (6.5-10.1) 9.1 FL (6.5-10.1) Neutrophils (%) (Auto) % (45.0-75.0) % (45.0-75.0) Lymphocytes (%) (Auto) % (20.0-45.0) % (20.0-45.0) Monocytes (%) (Auto) % (1.0-10.0) % (1.0-10.0) Eosinophils (%) (Auto) % (0.0-3.0) % (0.0-3.0) Basophils (%) (Auto) % (0.0-2.0) % (0.0-2.0) Differential Total Cells Counted 100 100 Neutrophils % (Manual) 76 % (45-75) H 83 % (45-75) H Lymphocytes % (Manual) 18 % (20-45) L 12 % (20-45) L Monocytes % (Manual) 3 % (1-10) 5 % (1-10) Eosinophils % (Manual) 3 % (0-3) 0 % (0-3) Basophils % (Manual) 0 % (0-2) 0 % (0-2) Band Neutrophils 0 % (0-8) 0 % (0-8) Platelet Estimate Decreased L Decreased L Platelet Morphology Normal Normal Hypochromasia 2+ 1+ Anisocytosis 2+ 1+ Haptoglobin 69 mg/dL (30-200) Coagulation Test 01/12/17 05:10 Prothrombin Time 12.7 SEC (9.30-11.50) H Prothromb Time International Ratio 1.2 (0.9-1.1) H Activated Partial Thromboplast Time 30 SEC (23-33) Fibrinogen 217 mg/dL (200-400) Chemistry Test 01/12/17 05:10 Sodium Level 135 mEQ/L (135-145) Potassium Level 3.3 mEQ/L (3.4-4.9) L Chloride Level 88 mEQ/L (98-107) L Carbon Dioxide Level 23 mEQ/L (20-30) Anion Gap 24 (5-15) H Blood Urea Nitrogen 4 mg/dL (7-23) L Creatinine 0.7 mg/dL (0.7-1.2) Estimat Glomerular Filtration Rate > 60 mL/min (>60) Glucose Level 215 mg/dL (74-106) #H Calcium Level 8.3 mg/dL (8.6-10.2) L Phosphorus Level 2.9 mg/dL (2.5-4.8) Magnesium Level 1.4 mg/dL (1.7-2.5) L Iron Level 91 ug/dL (59-158) Total Iron Binding Capacity 307 ug/dL (250-400) Percent Iron Saturation 30 % (15-50) Unsaturated Iron Binding 216 ug/dL (112-346) Ferritin 44 ng/mL (10-230) Total Bilirubin 5.0 mg/dL (0.0-1.2) H Direct Bilirubin 2.7 mg/dL (0.1-0.3) H Aspartate Amino Transf (AST/SGOT) 125 U/L (5-40) H Alanine Aminotransferase (ALT/SGPT) 32 U/L (3-41) Alkaline Phosphatase 174 U/L (40-129) H Lactate Dehydrogenase 245 U/L (135-230) H Total Protein 6.6 g/dL (6.6-8.7) Albumin 3.8 g/dL (3.5-5.2) Globulin 2.8 g/dL Albumin/Globulin Ratio 1.3 (1.0-2.7) Vitamin B12 Level 1060 pg/mL (211-946) H Folate Pending Thyroid Stimulating Hormone (TSH) 0.300 uIU/mL (0.300-4.500) Risk Assessment & Plan Assessment: ASA IIIE Plan: MAC Status Change Before Surgery: No Pre-Antibiotics Drug: N/A LEONARD LIMA M.D. January 12, 2017 09:44
--- NOTE | 2017-01-12 09:47 | Immediate Post-Op Evaluation ---
Immediate Post-Op Evalulation Immediate Post-Op Evalulation Procedure: EGD Date of Evaluation: January 12, 2017 Time of Evaluation: 09:44 IV Fluids: 400 Blood Products: 0 Estimated Blood Loss: 0 Urinary Output: 0 Blood Pressure Systolic: 117 Blood Pressure Diastolic: 72 Pulse Rate: 86 Respiratory Rate: 16 O2 Sat by Pulse Oximetry: 100 Temperature (Fahrenheit): 99.5 Pain Score (1-10): 0 Nausea: No Vomiting: No Complications 0 Patient Status: awake, reacts, patent, none Hydration Status: adequate Drug: N/A LEONARD LIMA M.D. January 12, 2017 09:47
--- NOTE | 2017-01-12 10:30 | Operative Note - Dictated ---
DATE OF OPERATION: 01/12/2017 GASTROENTEROLOGY PROCEDURE PROCEDURE: Upper gastrointestinal endoscopy. SURGEON: Miguel Angel Lund M.D. ANESTHESIA: Please see the separate anesthesiologist notes for details. PRE-ENDOSCOPIC DIAGNOSIS: Upper gastrointestinal bleeding. PRE-ENDOSCOPIC DIAGNOSIS: Diffuse possible non-erosive gastritis. PROCEDURE: The procedure, its risks, indications, alternatives were explained and informed consent was obtained. The patient was sedated in the left lateral decubitus position. A diagnostic upper endoscope was advanced to the duodenum. The examination of the mucosa revealed diffuse proximal nonerosive gastritis. There is no evidence of esophageal varices or ulcers. There is no active bleeding. The endoscope was removed. The patient was sent to recovery in good condition. COMPLICATIONS: None. RECOMMENDATIONS: 1. Resume oral diet. 2. Monitor CBC. Miguel Angel Lund M.D. DR: Vidal JOB#: [id number] CC:
[2017-01-12] MEDS: Thiamine HCl 100 MG in D5W 55 ML IVPB SCH (11:29)
[2017-01-12] MEDS: MULTIVITAMIN IV SCH (11:30)
[2017-01-12] MEDS: MAGNESIUM SULFATE IV SCH (11:30)
[2017-01-12] MEDS: FOLIC ACID IV SCH (11:30)
[2017-01-12] MEDS: [UNRECOGNIZED DRUG - OTHER] IV SCH (11:30)
[2017-01-12 11:52] LABS: MEAN CORPUSCULAR HEMOGLOBIN 27.1 PG (27.0-31.0); MEAN CORPUSCULAR HGB CONC 32.5 G/DL (32.0-36.0); MEAN CORPUSCULAR VOLUME 83 FL (80-99); MEAN PLATELET VOLUME 7.9 FL (6.5-10.1); PLATELET COUNT 17 K/UL (150-450); RED BLOOD COUNT 2.94 M/UL (4.70-6.10); RED CELL DISTRIBUTION WIDTH 18.1 % (11.6-14.8); WHITE BLOOD COUNT 3.1 K/UL (4.8-10.8)
[2017-01-12 12:13] LABS: BAND NEUTROPHILS % (MANUAL) 0 % (0-8); BASOPHILS % (MANUAL) 0 % (0-2); EOSINOPHILS % (MANUAL) 0 % (0-3); LYMPHOCYTES % (MANUAL) 15 % (20-45); NEUTROPHILS % (MANUAL) 84 % (45-75); PLATELET ESTIMATE DECREASED; TOTAL CELLS COUNTED 100
[2017-01-12 12:14] LABS: ANISOCYTOSIS 1+; HYPOCHROMASIA 1+; PLATELET MORPHOLOGY NORMAL
--- NOTE | 2017-01-12 15:22 | Infectious Diseases Prog Note ---
Assessment/Plan Problems: (1) Scrotal ulcer Assessment & Plan: with possible cellulitis, will start him on unasyn empirically, recommend urology eval (2) GI bleed Assessment & Plan: S/P EGD, with gastritis, continue PPI, GI is following (3) Alcohol intoxication Assessment & Plan: on alchol withdrawal protocol , continue benzodiazepine (4) Alcoholic liver disease Assessment & Plan: adviced to stop alchol, and rehabilitation Subjective Allergies: Coded Allergies: No Known Allergies (Unverified , 01/10/17) Objective Vital Signs Last 24 Hour Vital Signs Date Time Temp Pulse Resp B/P Pulse Ox O2 Delivery O2 Flow Rate FiO2 01/12/17 12:10 100.4 77 18 115/65 94 Room Air 01/12/17 09:56 99.2 83 23 112/68 96 Room Air 01/12/17 09:50 87 22 117/72 96 Room Air 01/12/17 09:47 86 16 100 01/12/17 09:45 88 24 116/70 100 Room Air 01/12/17 09:39 99.5 85 22 117/77 100 Simple Mask 6.0 01/12/17 08:00 98.2 88 18 123/71 96 Room Air 01/12/17 04:00 99.3 97 20 124/72 95 Room Air 01/12/17 01:06 99.1 01/12/17 00:00 99.3 105 20 128/68 95 Room Air 01/11/17 20:00 99.1 97 20 116/60 95 Room Air 01/11/17 16:34 98.2 91 17 123/61 97 Room Air 01/11/17 15:50 98.3 87 21 111/58 96 Room Air Height (Feet): 5 Height (Inches): 6.00 Weight (Pounds): 130 Microbiology Date/Time Source Procedure Growth Status 01/11/17 01:20 Blood Blood Culture - Preliminary NO GROWTH AFTER 24 HOURS Resulted 01/11/17 01:15 Blood Blood Culture - Preliminary NO GROWTH AFTER 24 HOURS Resulted Laboratory Tests Test 01/11/17 16:45 01/12/17 05:10 01/12/17 11:45 White Blood Count 3.9 K/UL (4.8-10.8) L 3.4 K/UL (4.8-10.8) L 3.1 K/UL (4.8-10.8) L Red Blood Count 2.95 M/UL (4.70-6.10) L 3.23 M/UL (4.70-6.10) L 2.94 M/UL (4.70-6.10) L Hemoglobin 8.0 G/DL (14.2-18.0) L 8.2 G/DL (14.2-18.0) L 7.9 G/DL (14.2-18.0) L Hematocrit 24.2 % (42.0-52.0) L 26.3 % (42.0-52.0) L 24.4 % (42.0-52.0) L Mean Corpuscular Volume 82 FL (80-99) 81 FL (80-99) 83 FL (80-99) Mean Corpuscular Hemoglobin 27.2 PG (27.0-31.0) 25.5 PG (27.0-31.0) L 27.1 PG (27.0-31.0) Mean Corpuscular Hemoglobin Concent 33.2 G/DL (32.0-36.0) 31.4 G/DL (32.0-36.0) L 32.5 G/DL (32.0-36.0) Red Cell Distribution Width 17.8 % (11.6-14.8) H 17.7 % (11.6-14.8) H 18.1 % (11.6-14.8) H Platelet Count 29 K/UL (150-450) L 29 K/UL (150-450) L 17 K/UL (150-450) L Mean Platelet Volume 6.7 FL (6.5-10.1) 9.1 FL (6.5-10.1) 7.9 FL (6.5-10.1) Neutrophils (%) (Auto) % (45.0-75.0) % (45.0-75.0) % (45.0-75.0) Lymphocytes (%) (Auto) % (20.0-45.0) % (20.0-45.0) % (20.0-45.0) Monocytes (%) (Auto) % (1.0-10.0) % (1.0-10.0) % (1.0-10.0) Eosinophils (%) (Auto) % (0.0-3.0) % (0.0-3.0) % (0.0-3.0) Basophils (%) (Auto) % (0.0-2.0) % (0.0-2.0) % (0.0-2.0) Differential Total Cells Counted 100 100 100 Neutrophils % (Manual) 76 % (45-75) H 83 % (45-75) H 84 % (45-75) H Lymphocytes % (Manual) 18 % (20-45) L 12 % (20-45) L 15 % (20-45) L Monocytes % (Manual) 3 % (1-10) 5 % (1-10) 1 % (1-10) Eosinophils % (Manual) 3 % (0-3) 0 % (0-3) 0 % (0-3) Basophils % (Manual) 0 % (0-2) 0 % (0-2) 0 % (0-2) Band Neutrophils 0 % (0-8) 0 % (0-8) 0 % (0-8) Platelet Estimate Decreased L Decreased L Decreased L Platelet Morphology Normal Normal Normal Hypochromasia 2+ 1+ 1+ Anisocytosis 2+ 1+ 1+ Haptoglobin 69 mg/dL (30-200) Prothrombin Time 12.7 SEC (9.30-11.50) H Prothromb Time International Ratio 1.2 (0.9-1.1) H Activated Partial Thromboplast Time 30 SEC (23-33) Fibrinogen 217 mg/dL (200-400) Sodium Level 135 mEQ/L (135-145) Potassium Level 3.3 mEQ/L (3.4-4.9) L Chloride Level 88 mEQ/L (98-107) L Carbon Dioxide Level 23 mEQ/L (20-30) Anion Gap 24 (5-15) H Blood Urea Nitrogen 4 mg/dL (7-23) L Creatinine 0.7 mg/dL (0.7-1.2) Estimat Glomerular Filtration Rate > 60 mL/min (>60) Glucose Level 215 mg/dL (74-106) #H Calcium Level 8.3 mg/dL (8.6-10.2) L Phosphorus Level 2.9 mg/dL (2.5-4.8) Magnesium Level 1.4 mg/dL (1.7-2.5) L Iron Level 91 ug/dL (59-158) Total Iron Binding Capacity 307 ug/dL (250-400) Percent Iron Saturation 30 % (15-50) Unsaturated Iron Binding 216 ug/dL (112-346) Ferritin 44 ng/mL (10-230) Total Bilirubin 5.0 mg/dL (0.0-1.2) H Direct Bilirubin 2.7 mg/dL (0.1-0.3) H Aspartate Amino Transf (AST/SGOT) 125 U/L (5-40) H Alanine Aminotransferase (ALT/SGPT) 32 U/L (3-41) Alkaline Phosphatase 174 U/L (40-129) H Lactate Dehydrogenase 245 U/L (135-230) H Total Protein 6.6 g/dL (6.6-8.7) Albumin 3.8 g/dL (3.5-5.2) Globulin 2.8 g/dL Albumin/Globulin Ratio 1.3 (1.0-2.7) Vitamin B12 Level 1060 pg/mL (211-946) H Folate Pending Thyroid Stimulating Hormone (TSH) 0.300 uIU/mL (0.300-4.500) Hepatitis A IgM Antibody Pending Hepatitis B Surface Antigen Pending Hepatitis B Core IgM Antibody Pending Hepatitis C Antibody Pending HIV (1&2) Antibody Rapid Negative (NEGATIVE) Current Medications Medications (Trade) Dose Ordered Sig/Yanely Route PRN Reason Start Time Stop Time Status Last Admin Dose Admin Acetaminophen (Tylenol) 650 mg Q4H PRN ORAL Mild Pain/Temp > 100.5 01/11/17 16:00 02/10/17 15:59 Ampicillin Sodium/ Sulbactam Sodium/ Sodium Chloride (Unasyn/Sodium Chloride) 110 ml @ 220 mls/hr Q6HR IVPB 01/12/17 15:30 01/19/17 15:29 UNV Chlordiazepoxide (Librium) 25 mg Q6H PRN ORAL Agitation 01/11/17 16:00 01/18/17 15:59 01/11/17 19:59 Dextrose (Dextrose 50%) STAT PRN IV Hypoglycemia 01/11/17 16:00 02/10/17 15:59 Dextrose/Sodium Chloride 1,000 ml @ 125 mls/hr Q8H IV 5/28/17 16:00 02/10/17 15:59 01/12/17 00:36 Lorazepam (Ativan 2mg/ml 1ml) 1 mg Q4H PRN IV For Anxiety 01/11/17 16:00 01/18/17 15:59 Morphine Sulfate (Morphine Sulfate) 2 mg Q4H PRN IVP Severe Pain (Pain Scale 7-10) 01/11/17 16:00 01/18/17 15:59 01/12/17 00:36 Multivitamins 10 ml/Magnesium Sulfate 2000 mg/ Folic Acid 1 mg/ Dextrose/ Electrolytes 1,014.2 ml @ 125 mls/ hr Q24HRS IV 01/12/17 10:30 02/11/17 10:29 01/12/17 11:30 Ondansetron HCl 4 mg 4 mg Q6H PRN IVP Nausea & Vomiting 01/11/17 20:15 02/10/17 20:14 01/12/17 04:41 Pantoprazole (Protonix) 40 mg EVERY 12 HOURS ORAL 01/11/17 21:00 02/10/17 20:59 01/12/17 11:27 Potassium Chloride 100 ml @ 100 mls/hr Q1H IVPB 01/12/17 15:30 01/12/17 19:29 Thiamine HCl/ Dextrose (Vitamin B1/D5W) 56 ml @ 112 mls/hr Q24H IVPB 01/12/17 10:00 02/11/17 09:59 01/12/17 11:29 Brannon Ariza M.D. January 12, 2017 15:22
[2017-01-12] MEDS ORDERED: Ampicillin/Sulbactam Sod 3 GM in NS 110 ML IVPB SCH (16:30)
[2017-01-12] MEDS ORDERED: D5 1/2NS 1000ml IV ONE (17:46)
[2017-01-12] MEDS ORDERED: NS 550ML IV ONE (17:46)
[2017-01-12] MEDS: Ampicillin/Sulbactam Sod 3 GM in NS 110 ML IVPB SCH (20:09)
--- NOTE | 2017-01-12 21:00 | Consultation ---
DATE OF CONSULTATION: INFECTIOUS DISEASE CONSULTATION CONSULTING PHYSICIAN: Brannon Ariza M.D. REQUESTING PHYSICIAN: Luis A Huff D.O. REASON FOR CONSULTATION: Fever with scrotal ulcer. Recommendation for antibiotics treatment. 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 The patient was brought in by his family and dropped at the emergency room here at [facility]. He was found to have a scrotal ulcer. The patient did not provide good history. Denied any vomiting or diarrhea or dysuria. His alcohol level was found to be elevated, so he was admitted to the hospital for evaluation and management and to be evaluated by GI for gastrointestinal bleeding. The patient underwent esophagogastroduodenoscopy, which showed gastritis. Today, he was spiking fever after his procedure, went up to 100.4 degrees, so I was consulted by the primary provider for antibiotics treatment and further management. As of note, the patient is a poor historian and cannot provide any history. History was mainly obtained from the medical record. PAST MEDICAL HISTORY: Significant for alcohol abuse and alcoholic liver disease. MEDICATIONS: The patient received pantoprazole, multivitamin, chlordiazepoxide, octreotide, and lorazepam in the emergency room. ALLERGIES: No known drug allergy. FAMILY HISTORY: Unable to obtain. SOCIAL HISTORY: The patient lives with the and child and he drinks alcohol almost on daily basis. PHYSICAL EXAMINATION: VITAL SIGNS: Temperature 100.4 degrees, pulse 77, respiration 18, blood pressure 115/65, and saturation 94% on room air. GENERAL: A young male, Chinese speaker, up in bed, awake, alert, and not in distress. HEENT: Normocephalic and atraumatic. Pupils are reactive to light. Moist oral mucosa. No exudate or thrush. NECK: Supple. No lymphadenopathy. CARDIOVASCULAR: Regular rate and rhythm. No murmur or gallop. LUNGS: Clear bilaterally. No wheezing or rhonchi. Normal breathing efforts. ABDOMEN: Soft, nontender, and nondistended. Positive ascites and hepatomegaly. EXTREMITIES: No edema or cyanosis. GENITOURINARY: He had scrotal bruises and cellulitis with ulcer. SKIN: He had multiple skin bruises on his back and abdomen. LABORATORY DATA: Labs showed white count of 3.1, hemoglobin of 7.9, and platelet count of 17,000. Chemistry showed BUN of 4 and creatinine of 0.7. AST of 125, ALT of 52, and alkaline phosphatase of 174. Toxicology showed serum alcohol level of 433. Urinalysis showed positive leukocyte esterase, WBC 0 to 2, and few urine bacteria. Hepatitis serology is pending. Human immunodeficiency virus antibody is negative. MICROBIOLOGY: Blood culture x2, negative to date. IMAGING: Chest x-ray showed cardiomegaly and pulmonary vascularity without overt congestive heart failure. Head CT showed no mass, effect, edema, or acute bleed. Chest and ankle x-ray showed no fracture. ASSESSMENT AND RECOMMENDATION: 1. Scrotal ulcer, possible cellulitis. We will start the patient on Unasyn. Recommend Urology consultation. We will order ultrasound of the scrotum to rule out abscess. 2. Gastrointestinal bleeding, status post esophagogastroduodenoscopy with gastritis. Continue PPI. Gastrointestinal is following. 3. Alcohol intoxication, on alcohol withdrawal protocol. Continue benzodiazepine as needed to prevent withdrawal. 4. Alcoholic liver disease. The patient was advised to stop alcohol and to be in rehabilitation. Brannon Ariza M.D. DR: MARY JOB#: [id number] CC:
[2017-01-12 21:08] LABS: MEAN CORPUSCULAR HEMOGLOBIN 25.9 PG (27.0-31.0); MEAN CORPUSCULAR HGB CONC 31.4 G/DL (32.0-36.0); MEAN CORPUSCULAR VOLUME 82 FL (80-99); MEAN PLATELET VOLUME 9.2 FL (6.5-10.1); PLATELET COUNT 27 K/UL (150-450); RED BLOOD COUNT 3.49 M/UL (4.70-6.10); RED CELL DISTRIBUTION WIDTH 17.6 % (11.6-14.8); WHITE BLOOD COUNT 4.1 K/UL (4.8-10.8)
[2017-01-12 22:19] LABS: ANISOCYTOSIS 1+; BAND NEUTROPHILS % (MANUAL) 0 % (0-8); BASOPHILS % (MANUAL) 1 % (0-2); EOSINOPHILS % (MANUAL) 2 % (0-3); HYPOCHROMASIA 1+; LYMPHOCYTES % (MANUAL) 16 % (20-45); NEUTROPHILS % (MANUAL) 77 % (45-75); PLATELET ESTIMATE DECREASED; PLATELET MORPHOLOGY NORMAL; TOTAL CELLS COUNTED 100
--- NOTE | 2017-01-12 22:47 | Pulmonology Progress Note ---
Assessment/Plan Problems: (1) GI bleed (2) Alcoholic liver disease (3) Thrombocytopenia (4) Alcohol intoxication Assessment/Plan h/h stable dc home when [place] with GI Subjective ROS Limited/Unobtainable: No Interval Events: no new complains Allergies: Coded Allergies: No Known Allergies (Unverified , 01/10/17) Objective Last 24 Hour Vital Signs Date Time Temp Pulse Resp B/P Pulse Ox O2 Delivery O2 Flow Rate FiO2 01/12/17 19:55 99.7 81 18 120/68 96 Room Air 01/12/17 18:00 99.9 01/12/17 16:00 99.9 85 18 114/73 95 Room Air 01/12/17 12:10 100.4 77 18 115/65 94 Room Air 01/12/17 09:56 99.2 83 23 112/68 96 Room Air 01/12/17 09:50 87 22 117/72 96 Room Air 01/12/17 09:47 86 16 100 01/12/17 09:45 88 24 116/70 100 Room Air 01/12/17 09:39 99.5 85 22 117/77 100 Simple Mask 6.0 01/12/17 08:00 98.2 88 18 123/71 96 Room Air 01/12/17 04:00 99.3 97 20 124/72 95 Room Air 01/12/17 01:06 99.1 01/12/17 00:00 99.3 105 20 128/68 95 Room Air Intake and Output 01/11/17 01/12/17 19:00 07:00 Intake Total 450 ml 1125 ml Balance 450 ml 1125 ml IV Total 450 ml 1125 ml # Voids 1 General Appearance: WD/WN HEENT: normocephalic Respiratory/Chest: chest wall non-tender, lungs clear Cardiovascular: normal peripheral pulses, normal rate Abdomen: normal bowel sounds, soft, non tender Genitourinary: normal external genitalia Extremities: no clubbing Microbiology Date/Time Source Procedure Growth Status 01/11/17 01:20 Blood Blood Culture - Preliminary NO GROWTH AFTER 24 HOURS Resulted 01/11/17 01:15 Blood Blood Culture - Preliminary NO GROWTH AFTER 24 HOURS Resulted Laboratory Tests 01/12/17 05:10: White Blood Count 3.4L, Red Blood Count 3.23L, Hemoglobin 8.2L, Hematocrit 26.3L , Mean Corpuscular Volume 81, Mean Corpuscular Hemoglobin 25.5L, Mean Corpuscular Hemoglobin Concent 31.4L, Red Cell Distribution Width 17.7H, Platelet Count 29L, Mean Platelet Volume 9.1, Neutrophils (%) (Auto) , Lymphocytes (%) (Auto) , Monocytes (%) (Auto) , Eosinophils (%) (Auto) , Basophils (%) (Auto) , Differential Total Cells Counted 100, Neutrophils % ( Manual) 83H, Lymphocytes % (Manual) 12L, Monocytes % (Manual) 5, Eosinophils % ( Manual) 0, Basophils % (Manual) 0, Band Neutrophils 0, Platelet Estimate DecreasedL, Platelet Morphology Normal, Hypochromasia 1+, Anisocytosis 1+, Haptoglobin 69, Prothrombin Time 12.7H, Prothromb Time International Ratio 1.2H , Activated Partial Thromboplast Time 30, Fibrinogen 217, Sodium Level 135, Potassium Level 3.3L, Chloride Level 88L, Carbon Dioxide Level 23, Anion Gap 24H , Blood Urea Nitrogen 4L, Creatinine 0.7, Estimat Glomerular Filtration Rate > 60, Glucose Level 215#H, Calcium Level 8.3L, Phosphorus Level 2.9, Magnesium Level 1.4L, Iron Level 91, Total Iron Binding Capacity 307, Percent Iron Saturation 30, Unsaturated Iron Binding 216, Ferritin 44, Total Bilirubin 5.0H, Direct Bilirubin 2.7H, Aspartate Amino Transf (AST/SGOT) 125H, Alanine Aminotransferase (ALT/SGPT) 32, Alkaline Phosphatase 174H, Lactate Dehydrogenase 245H, Total Protein 6.6, Albumin 3.8, Globulin 2.8, Albumin/ Globulin Ratio 1.3, Vitamin B12 Level 1060H, Folate [Pending], Thyroid Stimulating Hormone (TSH) 0.300, Hepatitis A IgM Antibody [Pending], Hepatitis B Surface Antigen [Pending], Hepatitis B Core IgM Antibody [Pending], Hepatitis C Antibody [Pending], HIV (1&2) Antibody Rapid Negative 01/12/17 11:45: White Blood Count 3.1L, Red Blood Count 2.94L, Hemoglobin 7.9L, Hematocrit 24.4L , Mean Corpuscular Volume 83, Mean Corpuscular Hemoglobin 27.1, Mean Corpuscular Hemoglobin Concent 32.5, Red Cell Distribution Width 18.1H, Platelet Count 17L, Mean Platelet Volume 7.9, Neutrophils (%) (Auto) , Lymphocytes (%) (Auto) , Monocytes (%) (Auto) , Eosinophils (%) (Auto) , Basophils (%) (Auto) , Differential Total Cells Counted 100, Neutrophils % ( Manual) 84H, Lymphocytes % (Manual) 15L, Monocytes % (Manual) 1, Eosinophils % ( Manual) 0, Basophils % (Manual) 0, Band Neutrophils 0, Platelet Estimate DecreasedL, Platelet Morphology Normal, Hypochromasia 1+, Anisocytosis 1+ 01/12/17 20:18: White Blood Count 4.1L, Red Blood Count 3.49L, Hemoglobin 9.0L, Hematocrit 28.7L , Mean Corpuscular Volume 82, Mean Corpuscular Hemoglobin 25.9L, Mean Corpuscular Hemoglobin Concent 31.4L, Red Cell Distribution Width 17.6H, Platelet Count 27#L, Mean Platelet Volume 9.2, Neutrophils (%) (Auto) , Lymphocytes (%) (Auto) , Monocytes (%) (Auto) , Eosinophils (%) (Auto) , Basophils (%) (Auto) , Differential Total Cells Counted 100, Neutrophils % ( Manual) 77H, Lymphocytes % (Manual) 16L, Monocytes % (Manual) 4, Eosinophils % ( Manual) 2, Basophils % (Manual) 1, Band Neutrophils 0, Platelet Estimate DecreasedL, Platelet Morphology Normal, Hypochromasia 1+, Anisocytosis 1+ Current Medications Medications (Trade) Dose Ordered Sig/Yanely Route PRN Reason Start Time Stop Time Status Last Admin Dose Admin Acetaminophen (Tylenol) 650 mg Q4H PRN ORAL Mild Pain/Temp > 100.5 01/11/17 16:00 02/10/17 15:59 01/12/17 16:43 Ampicillin Sodium/ Sulbactam Sodium/ Sodium Chloride (Unasyn/Sodium Chloride) 110 ml @ 220 mls/hr Q6H IVPB 01/12/17 20:00 01/19/17 19:59 01/12/17 20:09 Chlordiazepoxide (Librium) 25 mg Q6H PRN ORAL Agitation 01/11/17 16:00 01/18/17 15:59 01/11/17 19:59 Dextrose (Dextrose 50%) STAT PRN IV Hypoglycemia 01/11/17 16:00 02/10/17 15:59 Dextrose/Sodium Chloride 1,000 ml @ 125 mls/hr Q8H IV 01/11/17 16:00 02/10/17 15:59 01/12/17 00:36 Lorazepam (Ativan 2mg/ml 1ml) 1 mg Q4H PRN IV For Anxiety 01/11/17 16:00 01/18/17 15:59 Morphine Sulfate (Morphine Sulfate) 2 mg Q4H PRN IVP Severe Pain (Pain Scale 7-10) 01/11/17 16:00 01/18/17 15:59 01/12/17 00:36 Multivitamins 10 ml/Magnesium Sulfate 2000 mg/ Folic Acid 1 mg/ Dextrose/ Electrolytes 1,014.2 ml @ 125 mls/ hr Q24HRS IV 01/12/17 10:30 02/11/17 10:29 01/12/17 11:30 Ondansetron HCl (Zofran) 4 mg Q6H PRN IVP Nausea & Vomiting 01/11/17 20:15 02/10/17 20:14 01/12/17 04:41 Pantoprazole (Protonix) 40 mg EVERY 12 HOURS ORAL 01/11/17 21:00 02/10/17 20:59 01/12/17 21:15 Potassium Chloride 40 meq 40 meq ONCE ORAL 01/12/17 16:30 02/11/17 16:29 01/12/17 16:45 Thiamine HCl/ Dextrose (Vitamin B1/D5W) 56 ml @ 112 mls/hr Q24H IVPB 01/12/17 10:00 02/11/17 09:59 01/12/17 11:29 KENNETH SAN January 12, 2017 22:47
[2017-01-13 00:03] VITALS: BP 112/70
[2017-01-13] MEDS: Ampicillin/Sulbactam Sod 3 GM in NS 110 ML IVPB SCH ×3 (01:31→15:11)
[2017-01-13 04:04] VITALS: BP 115/69
[2017-01-13 04:53] LABS: MEAN CORPUSCULAR HEMOGLOBIN 25.7 PG (27.0-31.0); MEAN CORPUSCULAR HGB CONC 31.8 G/DL (32.0-36.0); MEAN CORPUSCULAR VOLUME 81 FL (80-99); MEAN PLATELET VOLUME 8.2 FL (6.5-10.1); PLATELET COUNT 29 K/UL (150-450); RED BLOOD COUNT 3.71 M/UL (4.70-6.10); RED CELL DISTRIBUTION WIDTH 17.5 % (11.6-14.8); WHITE BLOOD COUNT 3.8 K/UL (4.8-10.8)
[2017-01-13 05:11] LABS: ANION GAP 12 (5-15); CALCIUM 8.5 mg/dL (8.6-10.2); CARBON DIOXIDE 28 mEQ/L (20-30); CHLORIDE 94 mEQ/L (98-107); CREATININE 0.6 mg/dL (0.7-1.2); GLOMERULAR FILTRATION RATE > 60 mL/min (>60); HEMOLYSIS 1; POTASSIUM 3.3 mEQ/L (3.4-4.9); SODIUM 134 mEQ/L (135-145)
--- NOTE | 2017-01-13 07:34 | Cardiology Report ---
APPROVED REPORT EXAM: Two-dimensional and M-mode echocardiogram with Doppler and color Doppler. INDICATION Left ventricular function. M-Mode DIMENSIONS IVSd1.0 (0.7-1.1cm)Left Atrium (MM)4.0 (1.6-4.0cm) LVDd5.9 (3.5-5.6cm)Aortic Root3.5 (2.0-3.7cm) PWd1.1 (0.7-1.1cm)Aortic Cusp Exc.1.6 (1.5-2.0cm) LVDs4.3 (2.5-4.0cm) PWs1.8 cm Normal left ventricular chamber size, systolic function and wall motion to extent visualized. Left ventricular ejection fraction estimated to be 55%. No left ventricular hypertrophy. No evidence of pericardial effusion Anterior Echo-free space, may be due to pericardial fat or effusion. All other cardiac chamber sizes are within normal limits. Thickened mitral valve leaflets with normal excursion. Normal pulmonic valve structure Normal tricuspid valve structure. IVC at normal size 2cm with physiologic collapse.RA pressure 10mmHg. A color flow and spectral Doppler study was performed and revealed: No aortic regurgitation. No mitral regurgitation. Mitral diastolic velocities suggest grade II diastolic dysfunction (pseudo-normal LV physiology) Moderate tricuspid regurgitation. Tricuspid systolic velocities suggests peak right ventricular systolic pressure of 42mmHg consistent with moderate pulmonary hypertension.
[2017-01-13 07:47] VITALS: BP 122/72
--- NOTE | 2017-01-13 07:54 | Cardiology Report ---
APPROVED REPORT EKG Measurement Heart [id number] Normal sinus rhythm Cannot rule out Anterior infarct, age undetermined Abnormal ECG
[2017-01-13] MEDS: D5 1/2NS 1,000 ML IV SCH ×2 (08:19→16:00)
[2017-01-13 09:10] LABS: ANISOCYTOSIS 1+; BAND NEUTROPHILS % (MANUAL) 0 % (0-8); BASOPHILS % (MANUAL) 0 % (0-2); EOSINOPHILS % (MANUAL) 5 % (0-3); HYPOCHROMASIA 1+; LYMPHOCYTES % (MANUAL) 21 % (20-45); NEUTROPHILS % (MANUAL) 68 % (45-75); PLATELET ESTIMATE DECREASED; PLATELET MORPHOLOGY NORMAL; TOTAL CELLS COUNTED 100
[2017-01-13] MEDS: MULTIVITAMIN IV SCH (10:54)
[2017-01-13] MEDS: [UNRECOGNIZED DRUG - OTHER] IV SCH (10:54)
[2017-01-13] MEDS: MAGNESIUM SULFATE IV SCH (10:54)
[2017-01-13] MEDS: FOLIC ACID IV SCH (10:54)
[2017-01-13] MEDS: Thiamine HCl 100 MG in D5W 55 ML IVPB SCH (10:55)
[2017-01-13 11:28] VITALS: BP 105/63
[2017-01-13 12:02] LABS: MEAN CORPUSCULAR HEMOGLOBIN 25.6 PG (27.0-31.0); MEAN CORPUSCULAR HGB CONC 31.4 G/DL (32.0-36.0); MEAN CORPUSCULAR VOLUME 81 FL (80-99); PLATELET COUNT 32 K/UL (150-450); RED BLOOD COUNT 3.79 M/UL (4.70-6.10); RED CELL DISTRIBUTION WIDTH 17.1 % (11.6-14.8); WHITE BLOOD COUNT 4.3 K/UL (4.8-10.8)
[2017-01-13 12:49] LABS: BASOPHILS % (MANUAL) 1 % (0-2); EOSINOPHILS % (MANUAL) 2 % (0-3); LYMPHOCYTES % (MANUAL) 13 % (20-45); NEUTROPHILS % (MANUAL) 78 % (45-75); TOTAL CELLS COUNTED 100
[2017-01-13 12:50] LABS: BAND NEUTROPHILS % (MANUAL) 0 % (0-8); PLATELET ESTIMATE DECREASED; PLATELET MORPHOLOGY NORMAL
[2017-01-13 12:51] LABS: ANISOCYTOSIS 1+; HYPOCHROMASIA 2+
--- NOTE | 2017-01-13 13:07 | General Progress Note ---
Assessment/Plan Problem List: (1) Alcohol intoxication ICD Codes: F10.929 - Alcohol use, unspecified with intoxication, unspecified SNOMED: 70841317 Qualifiers: Qualified Codes: F10.929 - Alcohol use, unspecified with intoxication, unspecified (2) GI bleed ICD Codes: K92.2 - Gastrointestinal hemorrhage, unspecified SNOMED: 56334727 Qualifiers: Qualified Codes: K92.1 - Melena (3) Alcoholic liver disease ICD Codes: K70.9 - Alcoholic liver disease, unspecified SNOMED: 62848635 (4) Thrombocytopenia ICD Codes: D69.6 - Thrombocytopenia, unspecified SNOMED: 183571748 (5) Scrotal ulcer ICD Codes: N50.89 - Other specified disorders of the male genital organs SNOMED: 8649932 Status: stable, progressing Assessment/Plan ot pt diet ivf gi f/u cbc bmp am dc w hh if clear Subjective Constitutional: Reports: weakness Allergies: Coded Allergies: No Known Allergies (Unverified , 01/10/17) All Systems: reviewed and negative except above Subjective sleepy Objective Last 24 Hour Vital Signs Date Time Temp Pulse Resp B/P Pulse Ox O2 Delivery O2 Flow Rate FiO2 01/13/17 11:28 97.5 83 20 105/63 95 Room Air 01/13/17 07:47 99.5 79 16 122/72 95 Room Air 01/13/17 04:04 97.5 81 20 115/69 96 Room Air 01/13/17 00:03 97.9 79 20 112/70 95 Room Air 01/12/17 19:55 99.7 81 18 120/68 96 Room Air 01/12/17 18:00 99.9 01/12/17 16:00 99.9 85 18 114/73 95 Room Air Intake and Output 01/12/17 01/13/17 19:00 07:00 Intake Total 1225 ml 1734.2 ml Output Total 900 ml Balance 325 ml 1734.2 ml IV Total 1225 ml 1484.2 ml Blood Product 250 ml Output Urine Total 900 ml Estimated Blood Loss 0 ml # Voids 6 Laboratory Tests 01/12/17 20:18: White Blood Count 4.1L, Red Blood Count 3.49L, Hemoglobin 9.0L, Hematocrit 28.7L , Mean Corpuscular Volume 82, Mean Corpuscular Hemoglobin 25.9L, Mean Corpuscular Hemoglobin Concent 31.4L, Red Cell Distribution Width 17.6H, Platelet Count 27#L, Mean Platelet Volume 9.2, Neutrophils (%) (Auto) , Lymphocytes (%) (Auto) , Monocytes (%) (Auto) , Eosinophils (%) (Auto) , Basophils (%) (Auto) , Differential Total Cells Counted 100, Neutrophils % ( Manual) 77H, Lymphocytes % (Manual) 16L, Monocytes % (Manual) 4, Eosinophils % ( Manual) 2, Basophils % (Manual) 1, Band Neutrophils 0, Platelet Estimate DecreasedL, Platelet Morphology Normal, Hypochromasia 1+, Anisocytosis 1+ 01/13/17 04:30: White Blood Count 3.8L, Red Blood Count 3.71L, Hemoglobin 9.5L, Hematocrit 29.9L , Mean Corpuscular Volume 81, Mean Corpuscular Hemoglobin 25.7L, Mean Corpuscular Hemoglobin Concent 31.8L, Red Cell Distribution Width 17.5H, Platelet Count 29L, Mean Platelet Volume 8.2, Neutrophils (%) (Auto) , Lymphocytes (%) (Auto) , Monocytes (%) (Auto) , Eosinophils (%) (Auto) , Basophils (%) (Auto) , Differential Total Cells Counted 100, Neutrophils % ( Manual) 68, Lymphocytes % (Manual) 21, Monocytes % (Manual) 6, Eosinophils % ( Manual) 5H, Basophils % (Manual) 0, Band Neutrophils 0, Platelet Estimate DecreasedL, Platelet Morphology Normal, Hypochromasia 1+, Anisocytosis 1+, Sodium Level 134L, Potassium Level 3.3L, Chloride Level 94L, Carbon Dioxide Level 28, Anion Gap 12, Blood Urea Nitrogen 3L, Creatinine 0.6L, Estimat Glomerular Filtration Rate > 60, Glucose Level 144H, Calcium Level 8.5L 01/13/17 11:45: White Blood Count 4.3L, Red Blood Count 3.79L, Hemoglobin 9.7L, Hematocrit 30.8L , Mean Corpuscular Volume 81, Mean Corpuscular Hemoglobin 25.6L, Mean Corpuscular Hemoglobin Concent 31.4L, Red Cell Distribution Width 17.1H, Platelet Count 32L, Mean Platelet Volume 9.0, Neutrophils (%) (Auto) , Lymphocytes (%) (Auto) , Monocytes (%) (Auto) , Eosinophils (%) (Auto) , Basophils (%) (Auto) , Differential Total Cells Counted 100, Neutrophils % ( Manual) 78H, Lymphocytes % (Manual) 13L, Monocytes % (Manual) 6, Eosinophils % ( Manual) 2, Basophils % (Manual) 1, Band Neutrophils 0, Platelet Estimate DecreasedL, Platelet Morphology Normal, Hypochromasia 2+, Anisocytosis 1+ Height (Feet): 5 Height (Inches): 6.00 Weight (Pounds): 130 General Appearance: lethargic EENT: normal ENT inspection Neck: normal alignment Cardiovascular: normal peripheral pulses, normal rate, regular rhythm Respiratory/Chest: chest wall non-tender, lungs clear, normal breath sounds Abdomen: normal bowel sounds, non tender, soft Extremities: normal inspection Edema: no edema noted Arm (L), no edema noted Arm (R), no edema noted Leg (L), no edema noted Leg (R), no edema noted Pedal (L), no edema noted Pedal (R), no edema noted Generalized Neurologic: motor weakness Skin: normal pigmentation, warm/dry SHELLIE BOSS January 13, 2017 13:07
--- NOTE | 2017-01-13 15:07 | GI Progress Note ---
Assessment/Plan Problems: (1) Thrombocytopenia ICD Codes: D69.6 - Thrombocytopenia, unspecified SNOMED: 065094699 (2) GI bleed ICD Codes: K92.2 - Gastrointestinal hemorrhage, unspecified SNOMED: 48988372 Qualifiers: Qualified Codes: K92.1 - Melena (3) Alcoholic liver disease ICD Codes: K70.9 - Alcoholic liver disease, unspecified SNOMED: 37005147 (4) Alcohol intoxication ICD Codes: F10.929 - Alcohol use, unspecified with intoxication, unspecified SNOMED: 44509275 Qualifiers: Qualified Codes: F10.929 - Alcohol use, unspecified with intoxication, unspecified (5) Scrotal ulcer ICD Codes: N50.89 - Other specified disorders of the male genital organs SNOMED: 5673646 Status: stable Status Narrative Discussed with Dr. Abraham. Assessment/Plan S/P EGD SUMMARY: Diffuse proximal nonerosive gastritis. RECOMMENDATIONS: ok for DC per GI standpoint resume oral diet, tolerating monitor H&H, transfuse prn avoid ETOH fu PCP Subjective Gastrointestinal/Abdominal: Reports: no symptoms Subjective ready for discharge Objective Last 24 Hour Vital Signs Date Time Temp Pulse Resp B/P Pulse Ox O2 Delivery O2 Flow Rate FiO2 01/13/17 11:28 97.5 83 20 105/63 95 Room Air 01/13/17 07:47 99.5 79 16 122/72 95 Room Air 01/13/17 04:04 97.5 81 20 115/69 96 Room Air 01/13/17 00:03 97.9 79 20 112/70 95 Room Air 01/12/17 19:55 99.7 81 18 120/68 96 Room Air 01/12/17 18:00 99.9 01/12/17 16:00 99.9 85 18 114/73 95 Room Air Intake and Output 01/12/17 01/13/17 19:00 07:00 Intake Total 1225 ml 1734.2 ml Output Total 900 ml Balance 325 ml 1734.2 ml IV Total 1225 ml 1484.2 ml Blood Product 250 ml Output Urine Total 900 ml Estimated Blood Loss 0 ml # Voids 6 Laboratory Tests Test 01/12/17 20:18 01/13/17 04:30 01/13/17 11:45 White Blood Count 4.1 K/UL (4.8-10.8) L 3.8 K/UL (4.8-10.8) L 4.3 K/UL (4.8-10.8) L Red Blood Count 3.49 M/UL (4.70-6.10) L 3.71 M/UL (4.70-6.10) L 3.79 M/UL (4.70-6.10) L Hemoglobin 9.0 G/DL (14.2-18.0) L 9.5 G/DL (14.2-18.0) L 9.7 G/DL (14.2-18.0) L Hematocrit 28.7 % (42.0-52.0) L 29.9 % (42.0-52.0) L 30.8 % (42.0-52.0) L Mean Corpuscular Volume 82 FL (80-99) 81 FL (80-99) 81 FL (80-99) Mean Corpuscular Hemoglobin 25.9 PG (27.0-31.0) L 25.7 PG (27.0-31.0) L 25.6 PG (27.0-31.0) L Mean Corpuscular Hemoglobin Concent 31.4 G/DL (32.0-36.0) L 31.8 G/DL (32.0-36.0) L 31.4 G/DL (32.0-36.0) L Red Cell Distribution Width 17.6 % (11.6-14.8) H 17.5 % (11.6-14.8) H 17.1 % (11.6-14.8) H Platelet Count 27 K/UL (150-450) #L 29 K/UL (150-450) L 32 K/UL (150-450) L Mean Platelet Volume 9.2 FL (6.5-10.1) 8.2 FL (6.5-10.1) 9.0 FL (6.5-10.1) Neutrophils (%) (Auto) % (45.0-75.0) % (45.0-75.0) % (45.0-75.0) Lymphocytes (%) (Auto) % (20.0-45.0) % (20.0-45.0) % (20.0-45.0) Monocytes (%) (Auto) % (1.0-10.0) % (1.0-10.0) % (1.0-10.0) Eosinophils (%) (Auto) % (0.0-3.0) % (0.0-3.0) % (0.0-3.0) Basophils (%) (Auto) % (0.0-2.0) % (0.0-2.0) % (0.0-2.0) Differential Total Cells Counted 100 100 100 Neutrophils % (Manual) 77 % (45-75) H 68 % (45-75) 78 % (45-75) H Lymphocytes % (Manual) 16 % (20-45) L 21 % (20-45) 13 % (20-45) L Monocytes % (Manual) 4 % (1-10) 6 % (1-10) 6 % (1-10) Eosinophils % (Manual) 2 % (0-3) 5 % (0-3) H 2 % (0-3) Basophils % (Manual) 1 % (0-2) 0 % (0-2) 1 % (0-2) Band Neutrophils 0 % (0-8) 0 % (0-8) 0 % (0-8) Platelet Estimate Decreased L Decreased L Decreased L Platelet Morphology Normal Normal Normal Hypochromasia 1+ 1+ 2+ Anisocytosis 1+ 1+ 1+ Sodium Level 134 mEQ/L (135-145) L Potassium Level 3.3 mEQ/L (3.4-4.9) L Chloride Level 94 mEQ/L (98-107) L Carbon Dioxide Level 28 mEQ/L (20-30) Anion Gap 12 (5-15) Blood Urea Nitrogen 3 mg/dL (7-23) L Creatinine 0.6 mg/dL (0.7-1.2) L Estimat Glomerular Filtration Rate > 60 mL/min (>60) Glucose Level 144 mg/dL (74-106) H Calcium Level 8.5 mg/dL (8.6-10.2) L Height (Feet): 5 Height (Inches): 6.00 Weight (Pounds): 130 General Appearance: no apparent distress, alert Cardiovascular: regular rhythm Respiratory/Chest: normal breath sounds, no respiratory distress Abdominal Exam: normal bowel sounds, non tender, soft Extremities: normal range of motion Malissa Zaragoza N.P. January 13, 2017 15:07
[2017-01-13] MEDS ORDERED: PROTONIX40 MG ORAL (15:47)
[2017-01-13 16:29] VITALS: BP 115/71
--- NOTE | 2017-01-13 16:46 | Diagnostic Imaging Report ---
Indications: Testicular pain Technique: Grayscale and duplex images of the scrotum Comparison:None Findings:The right testicle measures 3.8cm in length. It demonstrates normal echogenicity. However, multiple punctate calcifications are seen scattered throughout the right testicle. Normal Doppler flow. Multiple cysts are seen in the epididymis. There is a minimal right hydrocele, which contains a small scrotal ryan The left testicle measures 4.2 cm in length. It demonstrates normal echogenicity and normal Doppler flow. However, numerous calcifications are seen scattered throughout the left testicle. Small cysts are seen in the epididymal head. There is a small left varicocele. Bleed Impression: Negative for evidence of testicular torsion or other acute scrotal pathology Small left varicocele Bilateral testicular microlithiasis Small right hydrocele with a scrotal ryan
[2017-01-13] MEDS ORDERED: D5 1/2NS 1000ml IV ONE (17:14)
[2017-01-13] MEDS ORDERED: Tubing IV Secondary IV ONE (17:14)
[2017-01-13] MEDS ORDERED: NS 275ml ONE (17:14)
--- NOTE | 2017-01-13 17:31 | Diagnostic Imaging Report ---
Indication: ABD PAIN abdominal pain, back pain Technique: Hand-scale and duplex images of the upper abdomen were obtained Comparison: None Findings: Gallbladder is unremarkable, without stones, wall thickening, nor pericholecystic fluid. Sonographic Htuchison's sign is negative. Common bile duct measures 4 mm in diameter. No intrahepatic biliary ductal dilatation. Liver demonstrates diffuse increased echogenicity. It is enlarged, demonstrates mild surface micro-nodularity. Portal vein and hepatic veins are patent. There are anterior abdominal varices noted. There is trace ascites. Pancreas is unremarkable. The spleen is enlarged, measuring 14.3 cm long axis dimension. There is also an accessory splenule demonstrated. Left kidney measures 12.2 cm in length. Right kidney measures 11.5 cm length. Both kidneys demonstrate normal echogenicity. There is no hydronephrosis. No focal abnormality . Abdominal aorta is partially obscured by bowel gas, visualized portions are non-aneurysmal . Impression: Negative for gallstones or dilated ducts Enlarged echogenic liver, suggestive of fatty change. However, liver also demonstrate surface nodularity, which is consistent with cirrhosis. Stigmata of portal hypertension, including trace ascites, varices, and splenomegaly Note suboptimal visualization of the distal abdominal aorta
--- NOTE | 2017-01-13 18:13 | Pulmonology Progress Note ---
Assessment/Plan Problems: (1) GI bleed (2) Alcoholic liver disease (3) Thrombocytopenia (4) Alcohol intoxication Assessment/Plan h/h stable gastric erosions on endoscopy dc home avoid etoh Subjective ROS Limited/Unobtainable: Yes Allergies: Coded Allergies: No Known Allergies (Unverified , 01/10/17) Objective Last 24 Hour Vital Signs Date Time Temp Pulse Resp B/P Pulse Ox O2 Delivery O2 Flow Rate FiO2 01/13/17 16:29 98.4 88 20 115/71 96 Room Air 01/13/17 11:28 97.5 83 20 105/63 95 Room Air 01/13/17 07:47 99.5 79 16 122/72 95 Room Air 01/13/17 04:04 97.5 81 20 115/69 96 Room Air 01/13/17 00:03 97.9 79 20 112/70 95 Room Air 01/12/17 19:55 99.7 81 18 120/68 96 Room Air Intake and Output 01/12/17 01/13/17 19:00 07:00 Intake Total 1225 ml 1734.2 ml Output Total 900 ml Balance 325 ml 1734.2 ml IV Total 1225 ml 1484.2 ml Blood Product 250 ml Output Urine Total 900 ml Estimated Blood Loss 0 ml # Voids 6 General Appearance: WD/WN HEENT: normocephalic, atraumatic Respiratory/Chest: chest wall non-tender, lungs clear Cardiovascular: normal peripheral pulses, normal rate Abdomen: normal bowel sounds, soft, non tender Genitourinary: normal external genitalia Extremities: no cyanosis Skin: no rash Microbiology Date/Time Source Procedure Growth Status 01/11/17 01:20 Blood Blood Culture - Preliminary NO GROWTH AFTER 48 HOURS Resulted 01/11/17 01:15 Blood Blood Culture - Preliminary NO GROWTH AFTER 48 HOURS Resulted Laboratory Tests 01/12/17 20:18: White Blood Count 4.1L, Red Blood Count 3.49L, Hemoglobin 9.0L, Hematocrit 28.7L , Mean Corpuscular Volume 82, Mean Corpuscular Hemoglobin 25.9L, Mean Corpuscular Hemoglobin Concent 31.4L, Red Cell Distribution Width 17.6H, Platelet Count 27#L, Mean Platelet Volume 9.2, Neutrophils (%) (Auto) , Lymphocytes (%) (Auto) , Monocytes (%) (Auto) , Eosinophils (%) (Auto) , Basophils (%) (Auto) , Differential Total Cells Counted 100, Neutrophils % ( Manual) 77H, Lymphocytes % (Manual) 16L, Monocytes % (Manual) 4, Eosinophils % ( Manual) 2, Basophils % (Manual) 1, Band Neutrophils 0, Platelet Estimate DecreasedL, Platelet Morphology Normal, Hypochromasia 1+, Anisocytosis 1+ 01/13/17 04:30: White Blood Count 3.8L, Red Blood Count 3.71L, Hemoglobin 9.5L, Hematocrit 29.9L , Mean Corpuscular Volume 81, Mean Corpuscular Hemoglobin 25.7L, Mean Corpuscular Hemoglobin Concent 31.8L, Red Cell Distribution Width 17.5H, Platelet Count 29L, Mean Platelet Volume 8.2, Neutrophils (%) (Auto) , Lymphocytes (%) (Auto) , Monocytes (%) (Auto) , Eosinophils (%) (Auto) , Basophils (%) (Auto) , Differential Total Cells Counted 100, Neutrophils % ( Manual) 68, Lymphocytes % (Manual) 21, Monocytes % (Manual) 6, Eosinophils % ( Manual) 5H, Basophils % (Manual) 0, Band Neutrophils 0, Platelet Estimate DecreasedL, Platelet Morphology Normal, Hypochromasia 1+, Anisocytosis 1+, Sodium Level 134L, Potassium Level 3.3L, Chloride Level 94L, Carbon Dioxide Level 28, Anion Gap 12, Blood Urea Nitrogen 3L, Creatinine 0.6L, Estimat Glomerular Filtration Rate > 60, Glucose Level 144H, Calcium Level 8.5L 01/13/17 11:45: White Blood Count 4.3L, Red Blood Count 3.79L, Hemoglobin 9.7L, Hematocrit 30.8L , Mean Corpuscular Volume 81, Mean Corpuscular Hemoglobin 25.6L, Mean Corpuscular Hemoglobin Concent 31.4L, Red Cell Distribution Width 17.1H, Platelet Count 32L, Mean Platelet Volume 9.0, Neutrophils (%) (Auto) , Lymphocytes (%) (Auto) , Monocytes (%) (Auto) , Eosinophils (%) (Auto) , Basophils (%) (Auto) , Differential Total Cells Counted 100, Neutrophils % ( Manual) 78H, Lymphocytes % (Manual) 13L, Monocytes % (Manual) 6, Eosinophils % ( Manual) 2, Basophils % (Manual) 1, Band Neutrophils 0, Platelet Estimate DecreasedL, Platelet Morphology Normal, Hypochromasia 2+, Anisocytosis 1+ Current Medications Medications (Trade) Dose Ordered Sig/Yanely Route PRN Reason Start Time Stop Time Status Last Admin Dose Admin Acetaminophen (Tylenol) 650 mg Q4H PRN ORAL Mild Pain/Temp > 100.5 01/11/17 16:00 02/10/17 15:59 01/12/17 16:43 Ampicillin Sodium/ Sulbactam Sodium/ Sodium Chloride (Unasyn/Sodium Chloride) 110 ml @ 220 mls/hr Q6H IVPB 01/12/17 20:00 01/19/17 19:59 01/13/17 15:11 Chlordiazepoxide (Librium) 25 mg Q6H PRN ORAL Agitation 01/11/17 16:00 01/18/17 15:59 01/11/17 19:59 Dextrose (Dextrose 50%) STAT PRN IV Hypoglycemia 01/11/17 16:00 02/10/17 15:59 Dextrose/Sodium Chloride 1,000 ml @ 125 mls/hr Q8H IV 01/11/17 16:00 02/10/17 15:59 01/13/17 08:19 Lorazepam (Ativan 2mg/ml 1ml) 1 mg Q4H PRN IV For Anxiety 01/11/17 16:00 01/18/17 15:59 Morphine Sulfate (Morphine Sulfate) 2 mg Q4H PRN IVP Severe Pain (Pain Scale 7-10) 01/11/17 16:00 01/18/17 15:59 01/12/17 00:36 Multivitamins 10 ml/Magnesium Sulfate 2000 mg/ Folic Acid 1 mg/ Dextrose/ Electrolytes 1,014.2 ml @ 125 mls/ hr Q24HRS IV 01/12/17 10:30 02/11/17 10:29 01/13/17 10:54 Ondansetron HCl (Zofran) 4 mg Q6H PRN IVP Nausea & Vomiting 01/11/17 20:15 02/10/17 20:14 01/12/17 04:41 Pantoprazole (Protonix) 40 mg EVERY 12 HOURS ORAL 01/11/17 21:00 02/10/17 20:59 01/13/17 08:19 Potassium Chloride 40 meq 40 meq ONCE ORAL 01/12/17 16:30 02/11/17 16:29 01/12/17 16:45 Thiamine HCl/ Dextrose (Vitamin B1/D5W) 56 ml @ 112 mls/hr Q24H IVPB 01/12/17 10:00 02/11/17 09:59 01/13/17 10:55 KENNETH SAN January 13, 2017 18:13
--- NOTE | 2017-01-13 18:55 | Infectious Diseases Prog Note ---
Assessment/Plan Problems: (1) Scrotal ulcer Assessment & Plan: with possible cellulitis, continue unasyn empirically, recommend urology eval if not done yet. (2) GI bleed Assessment & Plan: S/P EGD, with gastritis, continue PPI, GI is following (3) Alcohol intoxication Assessment & Plan: on alchol withdrawal protocol , continue benzodiazepine (4) Alcoholic liver disease Assessment & Plan: adviced to stop alchol, and rehabilitation Subjective Constitutional: Reports: fever HEENT: Reports: no symptoms Respiratory: Reports: no symptoms Breasts: Reports: no symptoms Cardiovascular: Reports: no symptoms Gastrointestinal/Abdominal: Reports: bloating, diarrhea Genitourinary: Reports: no symptoms Neurologic: Reports: no symptoms Skin: Reports: ulcer Allergies: Coded Allergies: No Known Allergies (Unverified , 01/10/17) Objective Vital Signs Last 24 Hour Vital Signs Date Time Temp Pulse Resp B/P Pulse Ox O2 Delivery O2 Flow Rate FiO2 01/13/17 16:29 98.4 88 20 115/71 96 Room Air 01/13/17 11:28 97.5 83 20 105/63 95 Room Air 01/13/17 07:47 99.5 79 16 122/72 95 Room Air 01/13/17 04:04 97.5 81 20 115/69 96 Room Air 01/13/17 00:03 97.9 79 20 112/70 95 Room Air 01/12/17 19:55 99.7 81 18 120/68 96 Room Air Height (Feet): 5 Height (Inches): 6.00 Weight (Pounds): 130 General Appearance: WD/WN, no acute distress HEENT: normocephalic, atraumatic, anicteric, mucous membranes moist Respiratory/Chest: chest wall non-tender, lungs clear, normal breath sounds, no respiratory distress, no accessory muscle use Cardiovascular: normal peripheral pulses, normal rate, regular rhythm, no gallop/murmur, no JVD Abdomen: no mass, no scars, absent bowel sounds, distended Extremities: no cyanosis, no clubbing Skin: no rash, no lesions, ulcers Microbiology Date/Time Source Procedure Growth Status 01/11/17 01:20 Blood Blood Culture - Preliminary NO GROWTH AFTER 48 HOURS Resulted 01/11/17 01:15 Blood Blood Culture - Preliminary NO GROWTH AFTER 48 HOURS Resulted Laboratory Tests Test 01/12/17 20:18 01/13/17 04:30 01/13/17 11:45 White Blood Count 4.1 K/UL (4.8-10.8) L 3.8 K/UL (4.8-10.8) L 4.3 K/UL (4.8-10.8) L Red Blood Count 3.49 M/UL (4.70-6.10) L 3.71 M/UL (4.70-6.10) L 3.79 M/UL (4.70-6.10) L Hemoglobin 9.0 G/DL (14.2-18.0) L 9.5 G/DL (14.2-18.0) L 9.7 G/DL (14.2-18.0) L Hematocrit 28.7 % (42.0-52.0) L 29.9 % (42.0-52.0) L 30.8 % (42.0-52.0) L Mean Corpuscular Volume 82 FL (80-99) 81 FL (80-99) 81 FL (80-99) Mean Corpuscular Hemoglobin 25.9 PG (27.0-31.0) L 25.7 PG (27.0-31.0) L 25.6 PG (27.0-31.0) L Mean Corpuscular Hemoglobin Concent 31.4 G/DL (32.0-36.0) L 31.8 G/DL (32.0-36.0) L 31.4 G/DL (32.0-36.0) L Red Cell Distribution Width 17.6 % (11.6-14.8) H 17.5 % (11.6-14.8) H 17.1 % (11.6-14.8) H Platelet Count 27 K/UL (150-450) #L 29 K/UL (150-450) L 32 K/UL (150-450) L Mean Platelet Volume 9.2 FL (6.5-10.1) 8.2 FL (6.5-10.1) 9.0 FL (6.5-10.1) Neutrophils (%) (Auto) % (45.0-75.0) % (45.0-75.0) % (45.0-75.0) Lymphocytes (%) (Auto) % (20.0-45.0) % (20.0-45.0) % (20.0-45.0) Monocytes (%) (Auto) % (1.0-10.0) % (1.0-10.0) % (1.0-10.0) Eosinophils (%) (Auto) % (0.0-3.0) % (0.0-3.0) % (0.0-3.0) Basophils (%) (Auto) % (0.0-2.0) % (0.0-2.0) % (0.0-2.0) Differential Total Cells Counted 100 100 100 Neutrophils % (Manual) 77 % (45-75) H 68 % (45-75) 78 % (45-75) H Lymphocytes % (Manual) 16 % (20-45) L 21 % (20-45) 13 % (20-45) L Monocytes % (Manual) 4 % (1-10) 6 % (1-10) 6 % (1-10) Eosinophils % (Manual) 2 % (0-3) 5 % (0-3) H 2 % (0-3) Basophils % (Manual) 1 % (0-2) 0 % (0-2) 1 % (0-2) Band Neutrophils 0 % (0-8) 0 % (0-8) 0 % (0-8) Platelet Estimate Decreased L Decreased L Decreased L Platelet Morphology Normal Normal Normal Hypochromasia 1+ 1+ 2+ Anisocytosis 1+ 1+ 1+ Sodium Level 134 mEQ/L (135-145) L Potassium Level 3.3 mEQ/L (3.4-4.9) L Chloride Level 94 mEQ/L (98-107) L Carbon Dioxide Level 28 mEQ/L (20-30) Anion Gap 12 (5-15) Blood Urea Nitrogen 3 mg/dL (7-23) L Creatinine 0.6 mg/dL (0.7-1.2) L Estimat Glomerular Filtration Rate > 60 mL/min (>60) Glucose Level 144 mg/dL (74-106) H Calcium Level 8.5 mg/dL (8.6-10.2) L Current Medications Medications (Trade) Dose Ordered Sig/Yanely Route PRN Reason Start Time Stop Time Status Last Admin Dose Admin Acetaminophen (Tylenol) 650 mg Q4H PRN ORAL Mild Pain/Temp > 100.5 01/11/17 16:00 02/10/17 15:59 01/12/17 16:43 Ampicillin Sodium/ Sulbactam Sodium/ Sodium Chloride (Unasyn/Sodium Chloride) 110 ml @ 220 mls/hr Q6H IVPB 01/12/17 20:00 01/19/17 19:59 01/13/17 15:11 Chlordiazepoxide (Librium) 25 mg Q6H PRN ORAL Agitation 01/11/17 16:00 01/18/17 15:59 01/11/17 19:59 Dextrose (Dextrose 50%) STAT PRN IV Hypoglycemia 01/11/17 16:00 02/10/17 15:59 Dextrose/Sodium Chloride 1,000 ml @ 125 mls/hr Q8H IV 01/11/17 16:00 02/10/17 15:59 01/13/17 08:19 Lorazepam (Ativan 2mg/ml 1ml) 1 mg Q4H PRN IV For Anxiety 01/11/17 16:00 01/18/17 15:59 Morphine Sulfate (Morphine Sulfate) 2 mg Q4H PRN IVP Severe Pain (Pain Scale 7-10) 01/11/17 16:00 01/18/17 15:59 01/12/17 00:36 Multivitamins 10 ml/Magnesium Sulfate 2000 mg/ Folic Acid 1 mg/ Dextrose/ Electrolytes 1,014.2 ml @ 125 mls/ hr Q24HRS IV 01/12/17 10:30 02/11/17 10:29 01/13/17 10:54 Ondansetron HCl (Zofran) 4 mg Q6H PRN IVP Nausea & Vomiting 01/11/17 20:15 02/10/17 20:14 01/12/17 04:41 Pantoprazole (Protonix) 40 mg EVERY 12 HOURS ORAL 01/11/17 21:00 02/10/17 20:59 01/13/17 08:19 Potassium Chloride 40 meq 40 meq ONCE ORAL 01/12/17 16:30 02/11/17 16:29 01/12/17 16:45 Thiamine HCl/ Dextrose (Vitamin B1/D5W) 56 ml @ 112 mls/hr Q24H IVPB 01/12/17 10:00 02/11/17 09:59 01/13/17 10:55 Brannon Ariza M.D. January 13, 2017 18:55
[2017-01-14 11:23] LABS: OTHERS PATHOLOGIST COMMENT
[2017-01-14 13:09] VITALS: BP 105/63
--- NOTE | 2017-01-14 13:09 | 48 Hour Post Anesthesia Eval ---
Post Anesthesia Evaluation Procedure: EGD Date of Evaluation: January 13, 2017 Time of Evaluation: 15:45 Blood Pressure Systolic: 105 0: 63 Pulse Rate: 83 Respiratory Rate: 20 Temperature (Fahrenheit): 97.5 O2 Sat by Pulse Oximetry: 95 Airway: patent Nausea: No Vomiting: No Pain Intensity: 0 Hydration Status: adequate Cardiopulmonary Status: at baseline Mental Status/LOC: patient returned to baseline Post-Anesthesia Complications: 0 Follow-up care needed: N/A - further care as per primary team LEONARD LIMA M.D. January 14, 2017 13:09
--- NOTE | 2017-01-15 13:05 | Discharge Summary ---
Discharge Summary Hospital Course Date of Admission January 11, 2017 at 01:59 Date of Discharge January 13, 2017 at 18:00 Admitting Diagnosis GI bleed/alcohol withdrawal HPI Ron Jimenez is a 26 year old male who was admitted on January 11, 2017 at 01:59 for Gastrointestinal Bleed, Alcohol Withdrawl Hospital Course [id number] Discharge Discharge Disposition Patient was discharged to Home (01) Discharge Diagnoses: Zully Reyes NP Jan 15, 2017 13:05
--- NOTE | 2017-01-16 00:15 | Discharge Summary 2 SIG ---
DATE OF ADMISSION: 01/11/2017 DATE OF DISCHARGE: 01/13/2017 CONSULTANTS: 1. Miguel Angel Lund M.D. 2. Brannon Ariza M.D. 3. Natasha Orr M.D. BRIEF HOSPITAL COURSE: The patient is a 26-year-old male, who came to ED with vomiting of blood. He was brought in by EMS. Apparently, he was altered and he was dropped off during an AA meeting. He presented with extremity pain, altered mentation, and melanotic stools. He was given IV hydration, and thiamine, and given Protonix. Laboratories showed elevated liver function tests. Alcohol level is 433. CT of the head was negative. He was given vitamin K and was admitted to [facility] for concerns of possible delirium tremens. EKG done showed normal sinus rhythm with chest x-ray. No consolidation, effusion, or pneumothorax. X-rays of the hand and ankle showed no fracture and no dislocation. He was admitted for further evaluation. He was placed on Sandostatin drip. Thrombocytopenia was presumed to be secondary to ETOH use. He was given Unasyn empirically for possible scrotal cellulitis. He underwent endoscopy on 01/12/2017 with findings of nonerosive gastritis with no evidence of ulcer or varices. Diet was resumed. Hemoglobin and hematocrit had been stable. He had an episode of fever at 100.4 degrees. Chest x-ray showed cardiomegaly and pulmonary vascularity without overt congestive heart failure. He was given Librium for alcohol withdrawal symptoms and was advised to stop alcohol and recommended alcohol rehabilitation. He was eventually discharged to home. FINAL DIAGNOSES: 1. Acute toxic metabolic encephalopathy secondary to alcohol intoxication. 2. Gastrointestinal bleed. 3. Alcoholic liver disease. 4. Pancytopenia likely related to alcohol intoxication and bone marrow suppression. 5. Alcoholic liver disease. 6. Coagulopathy secondary to cirrhosis. 7. Elevated liver transaminases. 8. Alcohol intoxication/withdrawal. 9. Possible scrotal cellulitis. Luis A Huff D.O. I have been assigned to dictate discharge summary on this account and I was not involved in the patient's management. Zully Reyes N.P. DR: John JOB#: [id number] CC:
== END 2017-01-13 18:00 | disposition home or self-care (01) | DRG 378 ==
LOC: EDBD 23:59 → EDBEDREQ 01-11 01:38 → EMR 01-11 01:55 → 2W 01-11 01:59 → EDBEDREQ 01-11 02:32 → 4W 01-11 15:32
PROC: 30233N1 Transfusion of Nonautologous Red Blood Cells into Peripheral Vein, Percutaneous Approach (ICD-10-PCS; principal; 2017-01-11)
PROC: 0DJ08ZZ Inspection of Upper Intestinal Tract, Via Natural or Artificial Opening Endoscopic (ICD-10-PCS; 2017-01-12)
DX: K92.2 Gastrointestinal hemorrhage, unspecified (principal); D61.818 Other pancytopenia; D68.4 Acquired coagulation factor deficiency; F10.239 Alcohol dependence with withdrawal, unspecified; D69.6 Thrombocytopenia, unspecified; K70.9 Alcoholic liver disease, unspecified; N50.89 Other specified disorders of the male genital organs; K29.70 Gastritis, unspecified, without bleeding; K70.10 Alcoholic hepatitis without ascites; D64.9 Anemia, unspecified; R51 Headache; M25.532 Pain in left wrist; M25.531 Pain in right wrist; M25.572 Pain in left ankle and joints of left foot; M25.571 Pain in right ankle and joints of right foot
CPT/HCPCS: 36415; 70450; 71010; 76700; 76870; 80048; 80053; 80300; 80329; 81003; 82140; 82248; 82550; 82607; 82728; 82746; 83010; 83540; 83550; 83605; 83615; 83735; 84100; 84443; 85007; 85025; 85060; 85384; 85610; 85730; 86703; 86705; 86709; 86803; 86850; 86900; 86901; 86920; 87040; 87340; 90471; 90715; 93005; 93306; 93970; 94003; 94150; J2405; J8499